=== PATIENT | female | born 1945 | race Caucasian/White ===

== ENCOUNTER 2020-03-23 10:20 | Outpatient (CLI) | payer MEDICARE, BC, SELFPAY ==
--- NOTE | 2020-03-23 10:31 | XRR_ITS ---
PROCEDURE INFORMATION: Exam: XR Right Knee Exam date and time: 03/23/2020 10:56 AM Age: 74 years old Clinical indication: Right; Patient HX: C/O RT medial knee pain. Stepped in a hole and twisted knee x 3 weeks; Additional info: R knee pain TECHNIQUE: Imaging protocol: XR Right knee. Views: 3 views. COMPARISON: No relevant prior studies available. FINDINGS: Bones/joints: There is mild medial and moderate patellofemoral compartment degeneration. There is a small knee joint effusion. Soft tissues: Normal. XR/XR knee RT 3V* [id number] IMPRESSION: Small knee joint effusion. No acute abnormality.
== END 2020-03-23 10:21 | disposition home or self-care (01) ==
PROVIDERS: Visit Provider Family Medicine
DX: M25.561 Pain in right knee (principal); M25.461 Effusion, right knee
CPT/HCPCS: 73562

== ENCOUNTER 2020-04-04 06:51 | Outpatient (CLI) | payer MEDICARE, BC, SELFPAY ==
--- NOTE | 2020-04-04 07:11 | MR_ITS ---
WS: [id number] MRI RIGHT KNEE HISTORY: RIGHT KNEE PAIN COMPARISON: 03/23/2020 Anterior cruciate ligament: Increased edema within the ACL but no full-thickness tear. Linear signal in the distal ligament, partial tear suspected. Posterior cruciate ligament: Intact. Medial collateral ligament: Edema surrounding the MCL. No full-thickness tear. Posterior lateral corner structures: Intact. Medial menisci: Increased signal in the posterior horn. No full-thickness tear is identified. The men iscus is extruded from the joint space. In the extruded portion there is increased signal at the leve l of the body. Increased signal is best seen on the coronal T2 with fat sat images and extends obliqu cielo through the meniscus. Lateral meniscus: Increased signal in the posterior horn. No full-thickness tear is identified. Incre ased signal does not extend definitely to the articular surfaces. Extensor mechanism: Distal quadriceps tendon and patellar tendons are intact. Fluid and soft tissue: Small suprapatellar joint effusion. There is a small amount of fluid surroundi ng the femoral condyles. No Rodrigues's cyst. Osseous and articular structures: Patellofemoral compartment: Loss of cartilage over the medial and lateral facets and patellar eminenc e. Small amount subchondral edema at the patellar eminence. Medial compartment: Thinning and fissuring of the cartilage. Mild narrowing of the joint space. There is partial extrusion of the meniscus Lateral compartment: Narrowing of the joint space with thinning and fissuring of the cartilage. There is additional marrow edema along the femoral condyle weightbearing surface. MR/MR knee RT wo con* [id number] IMPRESSION: 1. Moderate internal derangement medial compartment. Partially extruded menisc us with a complex tear in the mid body which is extruded from the joint line. 2. Mild MCL sprain. 3. Small joint effusion and soft tissue edema. 4. Marked chondromalacia patella. 5. Mild degenerative changes and loss of cartilage lateral compartment. 6. Linear increased signal in the ACL. Minimal tear suspected.
== END 2020-04-04 06:52 | disposition home or self-care (01) ==
LOC: RADSHAW 06:51
PROVIDERS: PCP Family Medicine; Visit Provider Family Medicine
DX: S83.411A Sprain of medial collateral ligament of right knee, initial encounter (principal); X58.XXXA Exposure to other specified factors, initial encounter; M25.461 Effusion, right knee; R60.9 Edema, unspecified; M22.41 Chondromalacia patellae, right knee
CPT/HCPCS: 73721

== ENCOUNTER 2020-04-11 10:11 | Outpatient (CLI) | payer MEDICARE, BC, SELFPAY ==
--- NOTE | 2020-04-11 10:20 | MM_ITS ---
WS: [id number] BILATERAL DIGITAL SCREENING MAMMOGRAPHY WITH CAD CLINICAL INFORMATION: SCREENING HISTORY: Screening mammogram. No current complaints. COMPARISON: March 28, 2019 TECHNIQUE: Bilateral CC and MLO views. FINDINGS: The breasts are composed of heterogeneous fibroglandular density tissue, which can limit the detectio n of small underlying mass lesions. Dystrophic calcifications posterior depth right breast Slightly spiculated 5 mm lesion upper outer right breast. Recommend spot compression views and ultras ound for further evaluation. MM/[place] [id number] IMPRESSION: BI-RADS: 0-Incomplete: Need additional imaging evaluation FOLLOW UP: Need Additional Imaging
== END 2020-04-11 10:12 | disposition home or self-care (01) ==
LOC: RADSHAW 10:17
PROVIDERS: PCP Family Medicine; Visit Provider Family Medicine
DX: Z12.31 Encounter for screening mammogram for malignant neoplasm of breast (principal); N64.89 Other specified disorders of breast
CPT/HCPCS: 77067

== ENCOUNTER → 2020-04-23 13:51 | Outpatient (BNVA) | payer MEDICARE, BC, SELFPAY | PROVIDERS: PCP Family Medicine; Referring Provider Family Medicine; Visit Provider Specialist | DX: M25.569 Pain in unspecified knee (principal); M17.11 Unilateral primary osteoarthritis, right knee; M25.461 Effusion, right knee | CPT/HCPCS: 73560; 73565; 80500; 89051 ==

== ENCOUNTER 2020-05-11 12:42 | Outpatient (CLI) | payer MEDICARE, BC, SELFPAY ==
--- NOTE | 2020-05-11 12:58 | MM_ITS ---
WS: [id number] RIGHT DIGITAL MAMMOGRAPHY WITH CAD CLINICAL INFORMATION: ABNORMAL MAMMO COMPARISON: 04/11/2020 and 03/28/2019 TECHNIQUE: 3 views of the right breast were obtained. FINDINGS: The right breast is composed of heterogeneous fibroglandular density tissue, which can limit the dete ction of small underlying mass lesions. Persistent slightly spiculated 5 mm lesion upper outer right breast. This persists on spot compression views. Ultrasound is pending. ULTRASOUND BREAST RIGHT TECHNIQUE: Ultrasound right breast focused area of concern. CLINICAL INFORMATION: ABNORMAL MAMMO COMPARISON: None. FINDINGS: Ultrasound right breast at the 9 to 12:00 position. Dense underlying breast tissue. At the 10:00 posi tion is a ill-defined hypoechoic lesion is taller than wide with a traversing vessel. This measures a pproximately 4.3 x 4.1 x 4.3 mm. Recommend further evaluation with ultrasound-guided biopsy. MM/[place] [id number] IMPRESSION: BI-RADS: 4-Suspicious Finding-Biopsy Should Be Considered FOLLOW UP: US Guided Biopsy Recommended
== END 2020-05-11 12:43 | disposition home or self-care (01) ==
LOC: RADSHAW 12:45
PROVIDERS: PCP Family Medicine; Visit Provider Family Medicine
DX: R92.8 Other abnormal and inconclusive findings on diagnostic imaging of breast (principal); N64.89 Other specified disorders of breast
CPT/HCPCS: 76642; 77065

== ENCOUNTER → 2020-05-16 10:24 | Outpatient (BNVA) | payer MEDICARE, BC, SELFPAY | PROVIDERS: PCP Family Medicine; Visit Provider Specialist | DX: M25.561 Pain in right knee (principal); M17.11 Unilateral primary osteoarthritis, right knee | CPT/HCPCS: 73560; 73565 ==

== ENCOUNTER 2020-05-18 12:12 | Outpatient (CLI) | payer MEDICARE, BC, SELFPAY ==
--- NOTE | 2020-05-18 12:24 | US_ITS ---
WS: [id number] ULTRASOUND-GUIDED RIGHT BREAST BIOPSY HISTORY: RIGHT breast lesion 10:00. COMPARISON: 05/11/2020 Procedure, risks and complications are explained to the patient. Medications are reviewed. Consent is obtained. The mass in the RIGHT breast is localized with ultrasound. Skin is cleansed with ChloraPrep and anest hetized with 1% buffered lidocaine. Small dermatome is made. Under sterile conditions mass is biopsie d with a 14-gauge Achieve needle. Multiple core biopsies are performed. Material placed in formalin a nd sent to pathology for review. No complications encountered. Breast tissue marker ([facility] ultrasound enhanced ribbon): Single. Patient left the radiology suite with no complications. Patient is instructed to return to [facility] or [facility] with any concerns. US/[place] [id number] IMPRESSION: 1. Uncomplicated core needle biopsy RIGHT breast mass at 10:00. PATHOLOGY: Invasive ductal carcinoma, well differentiated. Ancillary studies an d additional pathology evaluation is pending. RECOMMENDATION: Surgical and oncologic follow-up.
== END 2020-05-18 12:13 | disposition home or self-care (01) ==
LOC: RAD 12:18
PROVIDERS: PCP Family Medicine; Visit Provider Family Medicine
DX: N64.89 Other specified disorders of breast (principal); C50.411 Malignant neoplasm of upper-outer quadrant of right female breast
CPT/HCPCS: 19083; 88305

== ENCOUNTER 2020-06-06 10:19 | Outpatient (CLI) | payer MEDICARE, BC, SELFPAY ==
--- NOTE | 2020-06-07 18:42 | ONC CON_ITS ---
Dr. Arshad New Patient Note Patient: Bree Mendez Unit #: [id number]: [id number] Dicatated By: Mateus Arshad M.D.Date of Visit: Jun 06, 2020 Onc MED New Patient/Consult Referring Physician: Dr. MADISYN FUNES M.D. Chief Complaint: Breast cancer. 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 She has been in good general health. Her yearly screening mammogram on 04/11/2020 was BI-RADS 0. Findings included a slightly spiculated 5 mm lesion in the upper outer right breast. Her diagnostic mammogram on 05/11/2020 showed persistent slightly spiculated 5 mm upper outer quadrant breast lesion. Further evaluation with ultrasound showed an ill-defined hypoechoic lesion at the 10 o'clock position measuring approximately 4.3 x 4.1 x 4.3 mm. The findings were BI-RADS 4, suspicious, and further evaluation with biopsy was recommended. She then underwent ultrasound-guided core needle biopsy of the right breast on 05/22/2020. Pathology showed grade 1 invasive ductal carcinoma. The breast prognostic profile showed ER positive at 80% and AL positive at 70%. It was negative for overexpression of HER-2/cece, 1+ by IHC and amplification ratio by FISH of 1.0 with 2.2 HER-2 copies/cell. The Ki-67 was intermediate at 10%. She is seen now in regard to further management of the breast cancer. She has been feeling pretty good generally, though she does complain that she tires easily. Her ECOG score is 1. Her appetite is not that good, but she does eat. She says her weight is down a little. She does not have fever, night sweats, or hot flashes. She complains that her nose runs a lot and she sometimes has sore throat. She has had cough and she also complains that her breathing has not been as good. She used to be on an inhaler for asthma. She has a little bit of nausea. Her bowels vary between diarrhea and constipation. Her last colonoscopy was in 2007. She has no complaints. She has joint pain, mainly in the shoulders and in the right knee. She is seeing Dr. Francisco. She does not complain of headache. She has just occasional dizziness. She has a little bit of numbness in the right foot. She has no other focal neurologic symptoms. Past Medical History: Her medical history includes asthma, degenerative arthritis, glaucoma, hyperlipidemia, and osteoporosis. Past Surgical History: She underwent ultrasound directed core needle biopsy of the right breast on 05/22/2020. Her other surgical/procedural history includes glaucoma surgery and cataract excisions bilaterally, removal of lump on head, and colonoscopy in 2007. Medications: Cetirizine HCl 1 Tablet (of 10 mg) Oral PRN, Citracal +D3 1 Tablet (of 500-630 Units/mg) Tablet, chewable Oral at bedtime, Curcumin 95 1 Capsule (of 500 mg) Oral daily, Tawana 1 Capsule (of 500 mg) Oral daily, itch relief cream 1 Cream Topical PRN, Lutein 1 Capsule (of 20 mg) Oral daily, Magnesium 1 Tablet (of 500 mg) Oral daily, Union 3 1 Capsule (of 500 mg) Oral daily, Systane 1 Drop(s) (of 0.4-0.3 %) Solution Ophthalmic daily, Vitamin C 1 Tablet (of 1000 mg) Oral daily, Vitamin D3 1 Capsule (of 2000 Units) Oral daily Allergies: Actonel Social History: Ms. Mendez is . 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 She is a non-smoker. She has had only rare alcohol use. Family History: Her father of liver cancer at age 38. Mother had breast cancer and dementia. She at age 86. She had no siblings. Review Of Symptoms: Constitutional - She indicates that she tires easily, but she is still pretty active. She says she is not that hungry, but she does eat. Her weight is down a little. She has not had fever, night sweats, or hot flashes. ECOG score is 1, Eyes - She has glaucoma, but no recent change in vision, ENMT - She has had some hearing loss. No tinnitus. She says her nose runs a lot. She has had no mouth sores. She sometimes has sore throat. No difficulty swallowing, Hematologic/Lymphatic - No abnormal bruising or bleeding, Respiratory - Her breathing is not as good and she does have some cough. No pleuritic pain or hemoptysis, Cardiovascular - No angina pain. No palpitations, Gastrointestinal - She has a little bit of nausea. No heartburn or acid reflux. Her bowels fluctuate between diarrhea and constipation. No blood in the stool or black stools, Genitourinary (F) - No dysuria or hematuria. No urinary frequency. No urgency or incontinence, Musculoskeletal - She has joint pain in her shoulders and in her right knee. She is seeing Dr. Francisco, Integumentary - No skin rash or other skin changes, Neurologic - No headache. She occasionally has dizziness. She has a little bit of numbness in her right foot. No other focal neurologic symptoms, Psychiatric - No anxiety or depression. She has difficulty sleeping. Vital Signs: Performed on Jun 06, 2020 11:46: 0, 23.86, 1.76 sq.m, 66.00 in, 99 %, 73 /min, 20 /min, 147/64 mm(hg) (HIGH), 98.3 F (LOW), and 147.8 lbs (HIGH). Physical Examination: Constitutional - She appears to be in good general health, Eyes - Sclerae nonicteric. Conjunctivae clear, ENMT - No lesions noted in the oral cavity, Neck - No mass or thyromegaly, Hematologic/Lymphatic - No cervical or clavicular adenopathy, Respiratory - Lungs are clear with good air movement bilaterally, Cardiovascular - Heart rhythm is regular. There is no murmur, gallop, or rub noted, Breasts - There are no breast masses noted. There is no axillary adenopathy, Abdomen - Soft and non-tender. Liver and spleen are not enlarged. There is no abdominal mass or ascites noted and there is no inguinal adenopathy, Back/Spine - No spine or CVA tenderness noted, Extremities - No edema. Dorsalis pedis pulses are palpable bilaterally, Integumentary - No rashes. No suspicious skin lesions noted, Neurologic - No focal neurologic deficits noted. Impression: 1. 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 Staging is incomplete, but it does appear to be a very small primary lesion by imaging. 2. She underwent ultrasound directed core needle biopsy of the right breast on 05/22/2020. Her other medical illnesses include: 3. Glaucoma. 4. Hyperlipidemia. 5. Asthma. 6. Degenerative arthritis. 7. She previously was treated for osteoporosis. Plan: The mammogram/ultrasound findings and pathology results were reviewed with the patient, discussed the clinical implications. She has invasive ductal carcinoma of the right breast which is ER/AL positive and HER-2/cece negative. She almost certainly has early stage disease, as this appears to be a very small tumor by ultrasound. We discussed options for her local regional treatment, which may include lumpectomy/radiation or mastectomy. With either procedure she would also have axillary lymph node sampling to complete her staging. She appears to be a very good candidate for breast conservation, and she does want to proceed along that route. We also discussed the fact that with invasive breast cancer she also will need systemic adjuvant therapy. With early stage, ER/AL positive disease, this will very likely be limited to adjuvant hormonal therapy. This will be determined based on the pathologic staging and on results of Oncotype DX, as indicated. At this point I will arrange for her to see Dr. Hills for lumpectomy and axillary sentinel lymph node sampling, and I will plan to see her again when the pathology results are available. Signed By: Mateus Arshad M.D. <<Signature on File>>
== END 2020-06-06 10:20 | disposition home or self-care (01) ==
LOC: ONCMED 10:25
PROVIDERS: PCP Family Medicine; Referring Provider Family Medicine; Visit Provider Internal Medicine Medical Oncology
DX: C50.411 Malignant neoplasm of upper-outer quadrant of right female breast (principal); Z17.0 Estrogen receptor positive status [ER+]; E78.5 Hyperlipidemia, unspecified; J45.909 Unspecified asthma, uncomplicated; M19.90 Unspecified osteoarthritis, unspecified site; M81.0 Age-related osteoporosis without current pathological fracture; H40.9 Unspecified glaucoma
CPT/HCPCS: 99205

== ENCOUNTER → 2020-06-24 08:35 | Outpatient (BNVA) | payer MEDICARE, BC, SELFPAY | PROVIDERS: PCP Family Medicine; Visit Provider Surgery | DX: Z20.828 Contact with and (suspected) exposure to other viral communicable diseases (principal) | CPT/HCPCS: 87635 ==

== ENCOUNTER 2020-06-27 07:26 | Day surgery (SDC) | payer MEDICARE, BC, SELFPAY ==
[2020-06-26 14:11] VITALS: BMI 23.8
[2020-06-27] VITALS (12 sets, daily range): BP systolic 131–148; BP diastolic 73–85; PULSE 73–86; RESP 11–18; TEMP 36.1–36.5; O2SAT 94–98
--- NOTE | 2020-06-27 | US_ITS ---
WS: [id number] ULTRASOUND-GUIDED RIGHT BREAST NEEDLE LOCALIZATION HISTORY: RIGHT breast mass localized at 10:00. Procedure, risks and complications were explained to the patient. Consent is obtained. Skin is cleansed with ChloraPrep and anesthetized with 1% buffered lidocaine. Needle and guidewire pl aced to the area of concern with no complications. Ultrasound guidance performed during the needle lo calization. Guidewire is left within the lesion. Guidewire secured and no complications encountered. Patient is being transported to the OR suite. Specimen radiograph is also reviewed. Lesion is within the specimen. RECOMMENDATIONS: Follow-up with Dr. Hills. US/US breast surgical specimen IMPRESSION: Uncomplicated wire localization RIGHT breast mass at 10:00. PATHOLOGY RESULTS: Invasive ductal carcinoma.
--- NOTE | 2020-06-27 07:47 | NM_ITS ---
WS: [id number] NUCLEAR MEDICINE SENTINEL LYMPH NODE IMAGING HISTORY: RIGHT breast cancer. COMPARISON: None available. TECHNIQUE: The patient was injected with 1.08 mCi of Technetium 99 ultra filtered sulfur colloid. Inj ection is intradermal in a periareolar location. Four aliquots are used. Uncomplicated injection RIGHT periareolar region. NM/NM sentinel node inject [id number] IMPRESSION: RIGHT breast sentinel node injection.
--- NOTE | 2020-06-27 08:23 | W.PM.OPSUD ---
Surgery/Procedure H&P Update DATE OF PROCEDURE: June 27, 2020 DATE H&P PERFORMED: 06/12/20 H&P UPDATE INFORMATION: I have reviewed H&P completed within last 30 days, I have examined patient prior to procedure and No changes to prior documentation PREOP DIAGNOSIS: Right breast cancer PLANNED PROCEDURE: Operation Date: 06/27/20 09:50 Proposed Procedures p Breast Biopsy Needle Localization right [id number] C50.911(Right) - Marbin Hills MD s Sentinal Lymph Node Biopsy(Right) - Marbin Hills MD s Right Breast Lumpectomy(Right) - Marbin Hills MD
--- NOTE | 2020-06-27 08:40 | US_ITS ---
WS: [id number] ULTRASOUND-GUIDED RIGHT BREAST NEEDLE LOCALIZATION HISTORY: RIGHT breast mass localized at 10:00. Procedure, risks and complications were explained to the patient. Consent is obtained. Skin is cleansed with ChloraPrep and anesthetized with 1% buffered lidocaine. Needle and guidewire pl aced to the area of concern with no complications. Ultrasound guidance performed during the needle lo calization. Guidewire is left within the lesion. Guidewire secured and no complications encountered. Patient is being transported to the OR suite. Specimen radiograph is also reviewed. Lesion is within the specimen. RECOMMENDATIONS: Follow-up with Dr. Hills. US/[place] [id number] IMPRESSION: Uncomplicated wire localization RIGHT breast mass at 10:00. PATHOLOGY RESULTS: Invasive ductal carcinoma.
--- NOTE | 2020-06-27 09:32 | ANES.PREANE2 ---
Pre-Anesthetic Assessment Pre-Anesthetic Assessment: Height/Weight: Height 1.68 m Weight 67.132 kg Temp Pulse Resp BP Pulse Ox 97.6 F 75 18 141/85 98 06/27/20 07:40 06/27/20 07:40 06/27/20 07:40 06/27/20 07:40 06/27/20 07:40 Preop Diagnosis: Right breast cancer Proposed Procedure: Operation Date: 06/27/20 09:50 Proposed Procedures p Breast Biopsy Needle Localization right [id number] C50.911(Right) - Marbin Hills MD s Sentinal Lymph Node Biopsy(Right) - Marbin Hills MD s Right Breast Lumpectomy(Right) - Marbin Hills MD Familial anesthetic complications: none Was Beta Demetra taken within 24 hours: N/A Last Intake: 22:30 Social: Social History: No alcohol and No tobacco Exam: Pre-Anes Outpt Exam: alert, oriented x 3, clear to auscultation bilaterally and regular rate & rhythm Airway: Submandibular: WNL Cervical ROM: WNL MP: 1 Dentition: Full Pulmonary: Pulmonary: Asthma (possible allergy induced) and Cough (non productive) CV/HEM: CV/HEM: None reported : : None reported Hepatic: Hepatic: None reported GI: GI: None reported Metabolic: Metabolic: None reported Musc/skel: Musc/skel: OA/DJD Neuropsych: Neuropsych: None reported Anesthetic Plan: ASA status: 2 Anesthesia: Anesthesia Evaluation and General PFSH Anesthesia PFSH: Medical History (Updated 06/26/20 @ 14:00 by Julia Freedman RN) Breast cancer, right Primary osteoarthritis of right knee Surgical History H/O colonoscopy 2007 H/O eye surgery cataract and glaucoma H/O removal of cyst Hx of breast biopsy Family History Mother Cancer Father Cancer Other Stroke Denies family history of Diabetes Anesthesia complication Bleeding disorder Social History Smoking and tobacco status: never smoked Alcohol intake: current Alcohol intake frequency: holidays/special occasions only Household members: spouse Marital status: Current occupational status: retired History of recent travel: No Data Anesthesia Cardiac Studies: No Data to Display
[2020-06-27] MEDS: isosulfan blue 10 mg/mL SDV 5mL SUBCUT (12:19)
[2020-06-27] MEDS: lidocaine 1% INJ 20 mL IM (12:22)
--- NOTE | 2020-06-27 13:40 | SUR.PHASEI ---
1330 patient to pacu from or. rr even and unlabored. dressing to left breast, cdi with surgical bra in place.
[2020-06-27] MEDS: morphine 4 mg/mL SDV 1 mL IVP (14:25)
--- NOTE | 2020-06-27 15:55 | ANE.PACU2 ---
Inpatient post-anesthesia follow up: Airway intact: Yes Vital signs: Temperature 97 F Pulse Rate 76 Respiratory Rate 18 Blood Pressure 148/76 Pulse Oximetry 95 Oxygen Delivery Me thod Room Air Oxygen Flow Rate Fraction of Inspir ed Oxygen Hydration adequate: Yes Nausea and vomiting: No Pain level: 1 Mental status: Baseline
[2020-06-27] MEDS: sodium chloride 0.9% 1,000 ML 30 ML IV (16:01)
--- NOTE | 2020-07-02 17:02 | PM.OP ---
Operative Report Date of procedure: 06/27/2020 Pre-op Diagnosis: Right breast cancer Post-op Findings: Right breast cancer 10 o'clock position Procedure Done: Wire localization partial mastectomy right breast Right axillary sentinel lymph node biopsy Injection of 1% Lymphazurin for sentinel lymph node biopsy Pathology: Right breast mass 10 o'clock position, short stitch superior, long stitch lateral Right axilla sentinel lymph node biopsy Surgeon: Marbin Hills Anesthesia: General Condition: stable Disposition: PACU Procedure: The wire localization of the mammographic abnormality was performed by the radiologist under ultrasound guidance and the patient was transferred to operating room and placed under general anesthesia after IV antibiotic had been administered. The right breast was prepped and draped in a manner . A curvilinear incision was made over the areolar margin at 9'o clock medial to the marking over the mammographic abnormality, subcutaneous tissue was divided and skin flaps were raised medially and laterally. The localization wire was grasped through the incision and using electrocautery the wire along with the breast tissue containing mammographic abnormality was dissected free from the surrounding tissue. Using 2-0 silk suture, short stitch was placed superiorly and a long stitch was placed laterally.The wound was irrigated with saline, hemostasis ensured with electrocautery and subcutaneous tissues approximated using 3-0 running Vicryl suture and skin was closed using running subcuticular 4-0 Monocryl sutures and Dermabond. A technetium sulfur colloid had been injected previously by the radiologist in the periareolar area. 3 mL of 1% Lymphazurin was injected in the subareolar location. The breast was massaged for 5 minutes and a 2 cm incision was made in the left axilla at the edge of the hairline. The subcutaneous tissue and clavipectoral fascia was divided with electrocautery and gentle dissection revealed lymphatics with stained lymph nodes. Using electrocautery the lymph nodes were dissected free and sent to pathology in formalin. There was no other significant radioactivity noted in the right axilla. Examination of the axilla did not reveal any other lymph nodes. The clavipectoral and subcutaneous tissue was approximated using running 3-0 Vicryl suture and skin was closed using running subcuticular 4-0 Monocryl suture and Dermabond.
== END 2020-06-27 15:59 | disposition home or self-care (01) ==
PROVIDERS: PCP Family Medicine; Visit Provider Surgery
PROC: (CPT 19301; principal; 2020-06-27 09:50)
PROC: (CPT 19301; 2020-06-27 09:50)
PROC: (CPT 19301; 2020-06-27 09:50)
DX: C50.411 Malignant neoplasm of upper-outer quadrant of right female breast (principal); J45.909 Unspecified asthma, uncomplicated; M19.90 Unspecified osteoarthritis, unspecified site
CPT/HCPCS: 19301; 38525; 12345; 19285; 38792; 88305; A9541; J0690; J1100; J2270; J2405; J2704; J3010; J3490; J7030; Q9968

== ENCOUNTER 2020-07-20 09:10 | Outpatient (CLI) | payer MEDICARE, BC, SELFPAY ==
--- NOTE | 2020-07-24 07:38 | ONC FU_ITS ---
Dr. Arshad Patient Follow-Up Note Patient: Bree Mendez Unit #: [id number]: 1945 Dicatated By: Mateus Arshad M.D.Date of Visit:Jul 20, 2020 Onc Med Follow-up/Prog Note Chief Complaint: Breast cancer. 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 Her yearly screening mammogram on 04/11/2020 was BI-RADS 0. Findings included a slightly spiculated 5 mm lesion in the upper outer right breast. Her diagnostic mammogram on 05/11/2020 showed persistent slightly spiculated 5 mm upper outer quadrant breast lesion. Further evaluation with ultrasound showed an ill-defined hypoechoic lesion at the 10 o'clock position measuring approximately 4.3 x 4.1 x 4.3 mm. The findings were BI-RADS 4, suspicious, and an ultrasound-guided core needle biopsy of the right breast on 05/22/2020 showed grade 1 invasive ductal carcinoma. The breast prognostic profile showed ER positive at 80% and NE positive at 70%. It was negative for overexpression of HER-2/cece, 1+ by IHC and amplification ratio by FISH of 1.0 with 2.2 HER-2 copies/cell. The Ki-67 was intermediate at 10%. On 07/02/2020 she underwent right breast lumpectomy and right axillary sentinel lymph node biopsy. Pathology showed just a small residual focus of grade 1 invasive ductal carcinoma measuring 2.7 mm. The margins were negative. There was no involvement in 3 axillary sentinel lymph nodes. Pathologic staging was IA (T1b, pN0, M0). She has seen now to discuss further management of the breast cancer. She has soreness at the lumpectomy site in the right breast. She is otherwise feeling okay. Medications: Cetirizine HCl 1 Tablet (of 10 mg) Oral PRN, Citracal +D3 1 Tablet (of 500-630 Units/mg) Tablet, chewable Oral at bedtime, Curcumin 95 1 Capsule (of 500 mg) Oral daily, Tawana 1 Capsule (of 500 mg) Oral daily, itch relief cream 1 Cream Topical PRN, Lutein 1 Capsule (of 20 mg) Oral daily, Magnesium 1 Tablet (of 500 mg) Oral daily, Baldwin 3 1 Capsule (of 500 mg) Oral daily, Systane 1 Drop(s) (of 0.4-0.3 %) Solution Ophthalmic daily, Vitamin C 1 Tablet (of 1000 mg) Oral daily, Vitamin D3 1 Capsule (of 2000 Units) Oral daily Allergies: Actonel Vital Signs: Performed on Jul 20, 2020 09:18 Height - 66.00 in Weight - 150.8 lbs (HIGH) BSA - 1.77 sq.m BMI - 24.34 Temperature - 98.2 F (LOW) Pulse - 83 /min Respiration - 18 /min BP - 124/59 mm(hg) O2 Sat - 97 % Pain - 3 Physical Examination: Constitutional - She looks good generally, Breasts - There is a firm nodule at the lumpectomy site in the right breast, measuring the range of 2 to 3 cm. It feels more like organizing hematoma as opposed to seroma. There is no associated erythema. There is no axillary adenopathy. Impression: 1. 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 2. She underwent ultrasound directed core needle biopsy of the right breast on 05/22/2020. Her other medical illnesses include: 3. Glaucoma. 4. Hyperlipidemia. 5. Asthma. 6. Degenerative arthritis. 7. She previously was treated for osteoporosis. Her pathologic indicators are favorable, as it is a very small, grade 1 lesion, which is hormone receptor positive and which is not showing overexpression of HER-2/cece. She has a tender nodule at the lumpectomy site, which I suspect is organizing hematoma, though seroma was not entirely excluded. Plan: There appears to be no indication for adjuvant chemotherapy, I will not be requesting Oncotype DX in this situation. She does need to see the radiation oncologist for radiation, following which I will plan to initiate adjuvant hormonal therapy. I reviewed options for hormonal therapy, which will most likely be an aromatase inhibitor, and I did review the potential side effects which may include osteoporosis and/or musculoskeletal pain, among others. I did recommend that she follow-up with Dr. Hills regarding the nodule at the lumpectomy site. Ftzz-eo-aayr time with patient was approximately 30 minutes, greater than 50% spent in counseling/discussion. Signed By: Mateus Arshad M.D. <<Signature on File>>
== END 2020-07-20 09:11 | disposition home or self-care (01) ==
PROVIDERS: PCP Family Medicine; Visit Provider Internal Medicine Medical Oncology
DX: C50.411 Malignant neoplasm of upper-outer quadrant of right female breast (principal); Z17.0 Estrogen receptor positive status [ER+]; G89.18 Other acute postprocedural pain; E78.5 Hyperlipidemia, unspecified; M19.90 Unspecified osteoarthritis, unspecified site; M81.0 Age-related osteoporosis without current pathological fracture; J45.909 Unspecified asthma, uncomplicated
CPT/HCPCS: 99214

== ENCOUNTER 2020-07-26 06:12 | Outpatient (CLI) | payer MEDICARE, BC, SELFPAY ==
--- NOTE | 2020-07-26 10:44 | N.ONRAD NP_ITS ---
Radiation Oncology New Patient Visit Patient: Bree Mendez MR#: [id number] : 1945 Age: 75 Sex: Female Dictated by: Dr. Kar Roberts Date of Service: 07/26/2020 Referring Physician(s) : Dr Arshad Primary Site: Right breast Diagnosis: pT1b pN0 (0/3sln) Mx grade 1 invasive ductal carcinoma originating in the right breast at the 10 o'clock position, ER/VA strongly positive, HER-2 negative, Ki-67 10%, status post lumpectomy and sentinel lymph node biopsy (06/28/2020) with pathology revealing lateral margins negative by 2 mm, 5.8 mm aggregate size of tumor, no DCIS, no LVI/PNI, and 0/3 involved sentinel lymph nodes. Purpose of Visit: Discuss the role of adjuvant radiotherapy with curative intent. Radiotherapy to date: No prior radiation therapy. History of Present Illness: The patient is a 75-year-old female who underwent an annual screening mammogram (04/11/2020) which revealed a slightly spiculated 5 mm lesion in the upper outer quadrant of the right breast. A subsequent diagnostic mammogram and right breast ultrasound (05/11/2020) revealed a 4.3 x 4.1 x 4.3 mm hypoechoic lesion at the 10 o'clock position of the right breast. A subsequent ultrasound-guided core needle biopsy (05/18/2020) of the right breast at the 10 o'clock position revealed grade 1 invasive ductal carcinoma, ER +80%, VA +70%, HER-2/cece negative, Ki-67 10%, The patient subsequently underwent a wire localized right breast lumpectomy at the 10 o'clock position along with sentinel lymph node biopsy (Dr. Hills 06/28/2020). Pathology revealed a 2.7 mm residual focus of grade 1 invasive ductal carcinoma, no lymphovascular or perineural invasion was identified, margins were negative by 2 mm with respect to the lateral margin, ductal carcinoma in situ was not identified, and there was 0/3 involved sentinel lymph nodes. The pathologist characterized the maximum size of the tumor as 5.8 mm (i.e., 5.8 = 2.7 mm + 3.1 mm previous biopsy site). Current Medications: Cetirizine HCl, citracal +D3, curcumin 95, mayo, itch relief cream, lutein, magnesium, omega 3, systane, vitamin C, vitamin D3. Allergies: Actonel. Medical History: - Asthma, - degenerative arthritis, - glaucoma, - hyperlipidemia, - osteoporosis. No history of collagen vascular disease. No previous radiation therapy. Surgical History: Colonoscopy in 2007, glaucoma surgery and cataract excisions bilaterally, removal of lump on head and ultrasound directed core needle biopsy of the right breast on 05/22/2020. Family History: Father is having experienced liver cancer. Mother is at age 86 having experienced breast cancer, and dementia, and BONE CANCER. Maternal Grandmother is at age 80 having experienced BONE CANCER. Her father of liver cancer at age 38. Mother had breast cancer and dementia. She at age 86. She had no siblings. pt states her mother's sister had lymphoma, another sister had breast cancer but from a heart attack. Social History: Last screened on 07/26/2020 - Never smoked. Last screened on 07/26/2020 - Drinks occasionally. Current Complaints / Review of Systems: Constitutional - Complains of mild fatigue. Denies lack of appetite, fever, night sweats and change in weight. Eyes - Denies blurred vision and double vision. ENMT - Denies dysphagia, ear pain, mouth dryness, stomatitis and altered taste. Neck - Complains of neck pain which is chronic. Integumentary - Denies rash. Breasts - Complains of pain in the right breast occasionally. Cardiovascular - Denies arrhythmias, chest pain and edema. Respiratory - Complains of mild dyspnea associated with normal activity. Denies cough and wheezing. Gastrointestinal - Complains of intermittent constipation. Denies abdominal pain, diarrhea, heartburn / dyspepsia, nausea and vomiting. Genitourinary (F) - Complains of nocturia gets up about 1 time per night. Denies dysuria, frequency, hematuria, urgency, vaginal discharge / bleeding and vaginal spotting. Musculoskeletal - Complains of joint pain in both shoulders and right knee. Denies bone pain. Neurologic - Denies dizziness, abnormal gait and headaches. Endocrine - Denies diabetes and thyroid disease. Hematologic/Lymphatic - Denies tender or enlarged lymph nodes.. Vital Signs: Performed on 07/26/2020 9:30 AM BMI - 24.308 kg/m2 (high), Height - 66.00 in, Weight - 150.6 lbs, Temperature - 98.6 f, Pulse - 80, Respiration - 18, O2 Sat - 98 %, Pain - 2 and BP - 129/ 75 mm(hg). Physical Exam: GENERAL:??? The patient is alert, and in no acute distress. HEENT:??? Head is normocephalic. Face is symmetric. External ocular movements are intact. Sclera and conjunctivae are non erythematous. NECK:??? Trachea is midline.??? Thyroid is not enlarged by palpation.??? LYMPH NODES:??? There is no cervical, supraclavicular, or axillary adenopathy bilaterally. Breast: A well-healed post lumpectomy periareolar surgical scar is appreciated in the right breast. In addition, there is a well-healed surgical scar in the right axilla. The right breast has a small amount of seroma developing within the upper outer quadrant of the right breast. Mild scar retraction is appreciated in the right breast. There is no palpable abnormality in the contralateral left breast. LUNGS:??? Clear to auscultation bilaterally. Respiratory movement is unlabored. HEART:??? Regular rate and rhythm. EXTREMITIES:??? No deformities. NEUROLOGIC:??? Gait and station are normal.??? The patient is well coordinated and strength is equal bilaterally. 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 Cranial nerves II-XII are intact and without focal deficits.??? Psych: Affect is normal. Skin: Cursory review of the skin reveals no obvious lesions concerning for malignancy. Performance Status: 1 - No physically strenuous activity, but ambulatory and able to carry out light or sedentary work (e.g. office work, light house work). (ECOG) Impression: The patient is a 75-year-old female with pT1b pN0 (0/3sln) Mx grade 1 invasive ductal carcinoma originating in the right breast at the 10 o'clock position, ER/VA strongly positive, HER-2 negative, Ki-67 10%, status post lumpectomy and sentinel lymph node biopsy (06/28/2020) with pathology revealing lateral margins negative by 2 mm, 5.8 mm aggregate size of tumor, no DCIS, no LVI/PNI, and 0/3 involved sentinel lymph nodes. It was explained to the patient that providing adjuvant radiation therapy plus endocrine therapy would provide an 8% local control benefit over 10 years, and an approximate 18% local control benefit over 15 years (see figure 2- [facility] 2013 - PMID [id number]). This translates into an approximate 98% chance that cancer will not return within the treated right breast over a 10 to 15-year period. This recommendation is supported by termite inspector randomized data obtained by the [facility] as summarized below. Lumpectomy Plus Tamoxifen With or Without Irradiation in Women Age 70 Years or Older With Early Breast Cancer: Long-Term Follow-Up of CALGB 9343. (Cat [facility] [place] 2013 - PMID [id number]) CALGB 9343, 636 women with [id number] ER+ tumors, treated with Lumpectomy and Tamoxifen, randomized with and without XRT, Median F/U 12.6 years -) 10-yr freedom from locoregional recurrence: 90% (Tamoxifen alone) vs 98% (Tamoxifen + XRT). No significant differences in time to mastectomy, time to DM, BCSS, or OS. 10-yr OS was 66% and 67%, respectively. -) Conclusion: With long-term follow-up, the previously observed small improvement in locoregional recurrence with the addition of radiation therapy remains. However, this does not translate into an advantage in OS, distant disease-free survival, or breast preservation. Depending on the value placed on local recurrence, Tamoxifen [alone] remains a reasonable option for women age = 70 years with ER-positive early-stage breast cancer. Plan: The patient shared that Dr. Arshad may or may not recommend adjuvant endocrine therapy secondary to osteoporosis. In that instance, radiation therapy is definitely indicated for a local control benefit. I plan to provide a total dose of 42.56 Gy in 16 fractions to the entire right breast followed by a 10 Gy in 4 fraction lumpectomy cavity boost. We will begin treatment planning on Thursday. We discussed radiation logistics, potential acute and late side effects in detail, and the patient agreed to proceed as recommended. Signed by Kar Roberts MD: 07/26/2020 10:42:17 AM <<Signature on File>> CPT Code: CPT Code:
== END 2020-07-26 06:13 | disposition home or self-care (01) ==
LOC: ONCMED 06:14
PROVIDERS: PCP Family Medicine; Visit Provider Radiology Radiation Oncology
DX: C50.411 Malignant neoplasm of upper-outer quadrant of right female breast (principal); Z17.0 Estrogen receptor positive status [ER+]; M81.0 Age-related osteoporosis without current pathological fracture; E78.5 Hyperlipidemia, unspecified; J45.909 Unspecified asthma, uncomplicated; Z80.3 Family history of malignant neoplasm of breast
CPT/HCPCS: 99215

== ENCOUNTER 2020-08-27 05:22 | Outpatient (RCR) | payer MEDICARE, BC, SELFPAY ==
--- NOTE | 2020-07-31 | CT_ITS ---
Radiation Therapy Planning CT images; total exam DLP: 215.97 mGy-cm MTDD
--- NOTE | 2020-08-13 11:54 | N.ONRAD NP_ITS ---
Radiation Oncology Weekly Treatment Management Patient: Bree Mendez MR#: [id number] : 1945 Attending Physician: Dr. Rafita Wheatley Date of Service: 08/13/2020 Diagnosis: breast cancer Treatment Site: Right breast Dose: 13.3 Gy of a prescribed 42.5 Gy. Review of Systems: The patient denied any complaints. Vital Signs: Weight - 121 lbs. Temperature -98.5 F, BP -125/77 mm (hg). Pulse ???75 bpm, Respirations - 18, oxygen saturation was 95% on room air Physical Exam: The right breast did not demonstrate any erythema. Imaging: Radiation therapy imaging related to accurate target localization (i.e. KV, MV and CBCT) was reviewed. Appropriate changes, if any, were made to ensure treatment accuracy. Plan: Continue hypofractionated breast radiotherapy as planned. Signed by: Dr. Rafita Wheatley 08/13/2020 11:52:23 AM
--- NOTE | 2020-08-20 11:09 | ONCRAD TMN_ITS ---
Radiation Oncology Weekly Treatment Management Patient: Pope Bree MR#: [id number] : 1945 Attending Physician: Rafita Wheatley M.D. Date of Service: 08/20/2020 Diagnosis: breast cancer Treatment Site: Right breast Dose: 23.9 Gy of a prescribed 42.5 Gy. Review of Systems: The patient denied any complaints. Vital Signs: Weight - 121 lbs. Temperature -98.5 F, BP -125/77 mm (hg). Pulse ???75 bpm, Respirations - 18, oxygen saturation was 95% on room air Physical Exam: The right breast did not demonstrate any erythema. Imaging: Radiation therapy imaging related to accurate target localization (i.e. KV, MV and CBCT) was reviewed. Appropriate changes, if any, were made to ensure treatment accuracy. Plan: Continue hypofractionated breast radiotherapy as planned. Signed by: Dr. Rafita Wheatley 08/27/2020 11:19:28 AM
--- NOTE | 2020-08-27 11:43 | ONCRAD TMN_ITS ---
Radiation Oncology Weekly Treatment Management Patient: Pope Bree MR#: [id number] : 1945 Attending Physician: Rafita Wheatley M.D. Date of Service: 08/27/2020 Diagnosis: breast cancer Treatment Site: Right breast Dose: 31.9 Gy of a prescribed 42.5 Gy. Review of Systems: The patient denied any complaints. Vital Signs: Weight - 152 lbs. Temperature -98.8 F, BP -135/71 mm (hg). Pulse ???77 bpm, Respirations - 18 Physical Exam: The right breast did not demonstrate any erythema. Imaging: Radiation therapy imaging related to accurate target localization (i.e. KV, MV and CBCT) was reviewed. Appropriate changes, if any, were made to ensure treatment accuracy. Plan: Continue hypofractionated breast radiotherapy as prescribed. Signed by: Dr. Rafita Wheatley 08/27/2020 11:41:49 AM
== END 2020-08-27 23:59 | disposition home or self-care (01) ==
LOC: ONCMED 05:22
PROVIDERS: PCP Family Medicine; Visit Provider Radiology Radiation Oncology
DX: Z51.0 Encounter for antineoplastic radiation therapy (principal); C50.411 Malignant neoplasm of upper-outer quadrant of right female breast; Z17.0 Estrogen receptor positive status [ER+]
CPT/HCPCS: 77280; 77295; 77300; 77334; 77336; 77412; 77417

== ENCOUNTER → 2020-09-12 11:15 | Outpatient (BNVA) | payer MEDICARE, BC, SELFPAY | PROVIDERS: PCP Family Medicine; Visit Provider Specialist | DX: M19.011 Primary osteoarthritis, right shoulder (principal); M25.511 Pain in right shoulder; M25.512 Pain in left shoulder | CPT/HCPCS: 73030 ==

== ENCOUNTER 2020-09-14 05:39 | Outpatient (RCR) | payer MEDICARE, BC, SELFPAY ==
--- NOTE | 2020-09-14 11:01 | ONCRAD EPV_ITS ---
Radiation Oncology Established Patient Note Patient: Bree Mendez MR#: [id number] : 1945 Attending Physician: Rafita Wheatley M.D. Date of Service: 09/14/2020 Bree Mendez returned to my office this morning for a routinely scheduled post-radiotherapy appointment. She completed adjuvant radiotherapy in July for the post-operative management of her stage IA (T1bN0) Grade I invasive ductal carcinoma (ER(+), ID(+), and Her-2(-)) of the upper-outer quadrant of the right breast. Radiotherapy was administered between the dates of August 07, 2020 through August 31, 2020. A prescribed dose of 42.6 Gy was delivered in 16 fractions over 24 elapsed days. On review of systems, she did not report any breast complaints. On physical examination, she weighed 151 lbs. The temperature was 99.2???F. Her blood pressure was 130/87 mmHg. The pulse was 87 bpm and the respiratory rate was 18 breaths/min. Examination of the right breast did not reveal any significant erythema nor hyperpigmentation. In summary, the Bree Mendez returned for a routine post-radiotherapy follow-up. She did not have any residual adverse effects from treatment. The patient will continue follow-up with her medical oncologist as scheduled. Signed by: Dr. Rafita Wheatley 09/14/2020 11:00:01 AM
== END 2020-09-27 23:59 | disposition home or self-care (01) ==
LOC: ONCMED 05:39
PROVIDERS: PCP Family Medicine; Visit Provider Radiology Radiation Oncology
DX: Z51.0 Encounter for antineoplastic radiation therapy (principal); C50.411 Malignant neoplasm of upper-outer quadrant of right female breast; Z17.0 Estrogen receptor positive status [ER+]
CPT/HCPCS: 77336; 77412; 77417

== ENCOUNTER 2020-09-22 11:21 | Emergency (ER) | payer MEDICARE, BC, SELFPAY ==
[2020-09-22 11:23] VITALS: BP 150/85; PULSE 77; RESP 18; TEMP 36.6; O2SAT 97; BMI 23.3
--- NOTE | 2020-09-22 11:23 | XRR_ITS ---
PROCEDURE INFORMATION: Exam: XR Chest, 1 View Exam date and time: 09/22/2020 11:29 AM Age: 75 years old Clinical indication: Cough; Additional info: Dyspnea/cough TECHNIQUE: Imaging protocol: XR of the chest Views: 1 view. COMPARISON: No relevant prior studies available. FINDINGS: Lungs: There are pulmonary parenchymal calcifications consistent with remote granulomatous organism exposure. Prominent interstitial markings. There are patchy bibasilar opacities. Pleural space: Right costophrenic angle is not completely visualized. No pleural effusion. No pneumothorax. Heart/Mediastinum: There are calcified mediastinal and perihilar lymph nodes consistent with prior granulomatous exposure. Bones/joints: Unremarkable. XR/XR chest 1V portable [id number] IMPRESSION: Patchy bibasilar opacities are nonspecific. Differential includes scar tissue, pneumonia, and or neoplasm.
--- NOTE | 2020-09-22 11:33 | W.ED.SOB ---
HPI - SOB/Dyspnea General: Chief Complaint: COVID symptoms Stated Complaint: SOB Time Seen by Provider: 09/22/20 11:22 History of Present Illness: HPI Narrative: 75-year-old female comes in complaining of shortness of breath and cough weakness generalized flu symptoms for the last 6 to 7 days. She also has had diarrhea during that time. She denies any productive cough. No chest pain or abdominal pain. MD elicited complaint: shortness of breath and cough Onset (ago): day(s) (7) Timing: constant Severity: mild Exacerbating factors: exertion and coughing Relieving factors: rest Associated symptoms: Reports cough, myalgias and nausea; Deny abdominal pain, chest congestion, chest pain, diaphoresis, dizziness, extremity pain, fever(s), hemoptysis, lightheadedness, orthopnea, palpitations, paresthesias, polydipsia, polyuria, rash, sense of impending doom, syncope or vomiting Treatment prior to arrival: none Review of Systems Const: Denies: fever(s) or diaphoresis ENMT: Denies: throat pain, ear or mastoid pain, nasal discharge or nasal congestion Card: Denies: chest pain, palpitations, lightheadedness, syncope or orthopnea Resp: Denies: hemoptysis or chest congestion GI: Reports: nausea; Denies: abdominal pain or vomiting : Denies: flank pain, difficulty voiding, dysuria, urinary frequency or urinary urgency Musc: Denies: extremity pain Skin/Breast: Denies: rash or pruritus Neuro: Denies: dizziness Endo: Denies: polydipsia PFSH ED PFSH: Medical History Breast cancer, right Primary osteoarthritis of right knee Surgical History H/O colonoscopy 2007 H/O eye surgery cataract and glaucoma H/O removal of cyst Hx of breast biopsy Status post right breast lumpectomy (06/27/20) With sentinel lymph node biopsy Family History Mother Cancer Father Cancer Other Stroke Denies family history of Diabetes Anesthesia complication Bleeding disorder Social History Smoking and tobacco status: never smoked Alcohol intake: current Alcohol intake frequency: holidays/special occasions only Household members: spouse Marital status: Current occupational status: retired History of recent travel: No Physical Exam Const: COMMON NORMALS: no acute distress GENERAL APPEARANCE: cooperative and comfortable ORIENTATION/CONSCIOUSNESS: Yes awake, Yes oriented to person, Yes oriented to place and Yes oriented to time HENMT: COMMON NORMALS: normocephalic, atraumatic and hearing grossly normal bilaterally HEAD & SCALP: normocephalic and atraumatic Neck/C-Spine: COMMON NORMALS: no JVD Resp: COMMON NORMALS: normal respiratory effort, No retractions, No use of accessory muscles and clear to auscultation bilaterally AUSCULTATION: clear to auscultation bilaterally Cardio: COMMON NORMALS: no JVD, regular rate, regular rhythm and No murmurs present (Cardio) RATE: regular rate RHYTHM: regular rhythm GI: COMMON NORMALS: Soft to palpation and No hepatosplenomegaly present AUSCULTATION: Yes normoactive bowel sounds PALPATION: Yes Soft to palpation, No Tenderness to palpation present (GI), No Guarding due to palpation present (GI) and Yes No hepatosplenomegaly present Extremity: COMMON NORMALS: normal to inspection, capillary refill normal, no clubbing, cyanosis or edema, no calf tenderness and no pedal edema Neuro: SENSORIUM/ORIENTATION: Yes oriented to person, Yes oriented to place and Yes oriented to time Skin: COMMON NORMALS: no rashes or lesions noted GENERAL SKIN EXAM: no rashes or lesions noted Course Vital Signs: Vital signs: Vital Signs Temperature 98.4 F 09/22/20 15:18 Pulse Rate 79 09/22/20 16:24 Respiratory Rate 20 H 09/22/20 16:24 Blood Pressure 139/87 09/22/20 16:24 Pulse Oximetry 98 09/22/20 16:24 MDM - SOB/Dyspnea MDM Narrative: Medical decision making narrative: Rapid antigen for Covid was positive. Will discharge home with dexamethasone and albuterol. Had a discussion with the patient risk benefits of monoclonal antibody infusion as well as the fact that is only approved as an emergency authorization use drug. After discussion she wished to proceed she was infused and discharged home without any complications to maintain self quarantine. Additionally return to the emergency room if she has any worsening of symptoms or shortness of breath we will have her monitor O2 sat with a finger sat monitor at home. Lab Data: Labs: Lab Results 09/22/20 09/22/20 09/22/20 Range/Units 12:03 12:19 12:19 WBC 4.0 (4.0-10.0) 10^3/ uL RBC 3.96 L (4.1-5.3) 10^6/u L Hgb 12.1 (11.5-15.3) g/dL Hct 37.4 (37.0-47.0) % MCV 94.4 (81-99) fL MCH 30.6 (28.0-34.0) pg MCHC 32.4 (30.0-36.0) g/dL RDW 15.0 (12.1-15.1) % Plt Count 213 (130-400) 10^3/c mm MPV 11.2 H (7.4-10.4) fL Neut % (Auto) 55.1 % Lymph % (Auto) 30.1 % [place] % (Auto) 14.0 % Eos % (Auto) 0.0 % Baso % (Auto) 0.3 % Neut # (Auto) 2.20 (1.8-7.7) 10^3/u L Lymph # (Auto) 1.2 (0.8-4.8) 10^3/u L [place] # (Auto) 0.6 (0.2-0.9) 10^3/u L Eos # (Auto) 0.0 (0.0-0.8) 10^3/u L Baso # (Auto) 0.0 (0.0-0.1) 10^3/u L Nucleated RBC % (a uto) 0 % Nucleated RBCs # 0.0 /100WBC D-Dimer 0.97 H (0-0.59) ug/mIFE U Specimen Type Arterial Sample Site Radial, left ABG pH 7.52 H (7.35-7.45) ABG pCO2 28.3 L (35-45) mmHg ABG pO2 84.9 (80.0-100.0) mmH g ABG HCO3 23.0 (22-26) mmol/L ABG Base Excess 1.0 (-2.0-2.0) mmol/ L John Paul Test Pos Hematocrit 38.4 (37-47) % O2 Delivery Device Room air Cardiovascular Specialist ID Gd Sodium (136-145) mmol/L Potassium (3.5-5.1) mmol/L Chloride (98-107) mmol/L Carbon Dioxide (22-29) mmol/L Anion Gap (5-19) BUN (8-23) mg/dL Creatinine (0.5-0.9) mg/dL GFR Calculation Glucose (65-115) mg/dL Calculated Osmolal ity (285-295) mOsm/k g Lactic Acid (0.5-2.2) mmol/L Calcium (8.5-10.5) mg/dL Total Bilirubin (0.15-1.2) mg/dL AST (0-32) U/L ALT (0-33) U/L Alkaline Phosphata se (35-105) IU/L C-Reactive Protein (0.0-4.9) mg/L Total Protein (6.6-8.7) g/dL Albumin (3.5-5.2) g/dL Globulin (1.3-4.6) g/dL SARS-CoV-2 Ag (Rap id) (Negative) 09/22/20 09/22/20 09/22/20 Range/Units 12:19 12:19 12:25 WBC (4.0-10.0) 10^3/ uL RBC (4.1-5.3) 10^6/u L Hgb (11.5-15.3) g/dL Hct (37.0-47.0) % MCV (81-99) fL MCH (28.0-34.0) pg MCHC (30.0-36.0) g/dL RDW (12.1-15.1) % Plt Count (130-400) 10^3/c mm MPV (7.4-10.4) fL Neut % (Auto) % Lymph % (Auto) % [place] % (Auto) % Eos % (Auto) % Baso % (Auto) % Neut # (Auto) (1.8-7.7) 10^3/u L Lymph # (Auto) (0.8-4.8) 10^3/u L [place] # (Auto) (0.2-0.9) 10^3/u L Eos # (Auto) (0.0-0.8) 10^3/u L Baso # (Auto) (0.0-0.1) 10^3/u L Nucleated RBC % (a uto) % Nucleated RBCs # /100WBC D-Dimer (0-0.59) ug/mIFE U Specimen Type Sample Site ABG pH (7.35-7.45) ABG pCO2 (35-45) mmHg ABG pO2 (80.0-100.0) mmH g ABG HCO3 (22-26) mmol/L ABG Base Excess (-2.0-2.0) mmol/ L John Paul Test Hematocrit (37-47) % O2 Delivery Device Cardiovascular Specialist ID Sodium 136 (136-145) mmol/L Potassium 3.5 (3.5-5.1) mmol/L Chloride 101 (98-107) mmol/L Carbon Dioxide 22 (22-29) mmol/L Anion Gap 16.5 (5-19) BUN 17 (8-23) mg/dL Creatinine 0.7 (0.5-0.9) mg/dL GFR Calculation Not Reportable Glucose 92 (65-115) mg/dL Calculated Osmolal ity 283 L (285-295) mOsm/k g Lactic Acid 1.1 (0.5-2.2) mmol/L Calcium 9.3 (8.5-10.5) mg/dL Total Bilirubin 0.7 (0.15-1.2) mg/dL AST 25 (0-32) U/L ALT 18 (0-33) U/L Alkaline Phosphata se 64 (35-105) IU/L C-Reactive Protein 1.1 (0.0-4.9) mg/L Total Protein 7.2 (6.6-8.7) g/dL Albumin 4.3 (3.5-5.2) g/dL Globulin 2.9 (1.3-4.6) g/dL SARS-CoV-2 Ag (Rap id) Positive H (Negative) Discharge Plan Discharge Patient Disposition: Home Clinical Impression: COVID-19 Condition: Stable Prescriptions: New albuterol sulfate 90 mcg/actuation HFA aerosol inhaler 2 inh INHALATION Q4H PRN (Reason: shortness of breath or wheezing) Qty: 18 RF: 0 dexamethasone 6 mg tablet 6 mg PO DAILY Qty: 7 RF: 0 No Action mayo extract 250 mg capsule 250 mg PO DAILY@10 RF: 0 turmeric-turmeric root extract 450-50 mg capsule 1 cap PO DAILY@10 RF: 0 krill oil 500 mg capsule 500 mg PO DAILY@10 RF: 0 ascorbate calcium (vitamin C) 500 mg tablet 500 mg PO DAILY@10 RF: 0 cholecalciferol (vitamin D3) 50 mcg (2,000 unit) capsule 50 mcg PO DAILY@10 RF: 0 Tylenol Arthritis 650 mg Tablet Extended Release 650 mg PO Q12H PRN (Reason: Pain) RF: 0 Colace 100 mg capsule 100 mg PO BID@10,21 RF: 0 Discharge Orders: Discharge ED (Routine); Ordered 09/22/20 Ordered By: Aamir Kumar Referrals: Ancelmo Bolton MD [Primary Care Provider] - Discharge Diet: Usual diet Discharge Activity: Limit activity as instructed Activity Restrictions/Additional Instructions: Tested positive for COVID-19. You should maintain quarantine for 14 more days. You were given a monoclonal antibody infusion to shorten the length of the disease and decrease the severity hospital representatives will call with follow-up on this treatment. If you have any worsening symptoms or shortness of breath return to the emergency room. Monitor your oxygen saturation at home with a monitor given to you today. Coding Level of Care Code ED Label Remover for Jorge Fwd Exam Comprehensive Monoclonal Antibody Treatments Inclusion/Exclusion Criteria weight >/= 40 kg and + direct Sars-Cov-2 test less than 7-10 days ago age >/= 65 and has immunosuppressive disease Patient education patient/family/caregiver received/reviewed fact sheet, Emergency Use Authorization/unapproved drug status discussed with patient/family/caregiver, alternatives to this treatment discussed with patient/family/caregiver, risks and benefits of medication reviewed with patient/family/caregiver, patient/family/caregiver given opportunity for questions, which were answered and patient consents to receiving Monoclonal Antibody Treatment Plan for treatment Meets criteria for Monoclonal Antibody infusion Monoclonal antibody information given
[2020-09-22 12:21] LABS: ABG PCO2 28.3 mmHg (35-45); ABG PH Result 7.52 (7.35-7.45); Arterial Blood Gas Hematocrit 38.4 % (37-47); Blood Gas Allen Test Pos; Blood Gas Operator Identificat GD; Blood Gas Sample Site Radial, left; Blood Gas Sample Type Arterial; Oxygen Device ROOM AIR; PO2 ABG 84.9 mmHg (80.0-100.0)
[2020-09-22 13:13] LABS: Basophils % 0.3 %; Hematocrit 37.4 % (37.0-47.0); Hemoglobin 12.1 g/dL (11.5-15.3); Lymphocytes # 1.2 10^3/uL (0.8-4.8); Lymphocytes % 30.1 %; Mean Corpuscular HGB Conc 32.4 g/dL (30.0-36.0); Mean Corpuscular Hemoglobin 30.6 pg (28.0-34.0); Mean Corpuscular Volume 94.4 fL (81-99); Mean Platelet Volume 11.2 fL (7.4-10.4); Monocytes # 0.6 10^3/uL (0.2-0.9); Neutrophils % 55.1 %; Nucleated Red Blood Cells % 0 %; Platelet Count 213 10^3/cmm (130-400); Red Blood Count 3.96 10^6/uL (4.1-5.3)
[2020-09-22 13:33] LABS: D Dimer 0.97 ug/mIFEU (0-0.59)
[2020-09-22 13:34] LABS: Alanine Aminotransferase 18 U/L (0-33); Albumin Level 4.3 g/dL (3.5-5.2); Alkaline Phosphatase 64 IU/L (35-105); Anion Gap 16.5 (5-19); Aspartate Amino Transferase 25 U/L (0-32); Blood Urea Nitrogen 17 mg/dL (8-23); C Reactive Protein 1.1 mg/L (0.0-4.9); Calcium 9.3 mg/dL (8.5-10.5); Carbon Dioxide 22 mmol/L (22-29); Chloride 101 mmol/L (98-107); Globulin 2.9 g/dL (1.3-4.6); Glucose 92 mg/dL (65-115); Lactic Sepsis W/Reflex 1.1 mmol/L (0.5-2.2); Osmolality Calculated 283 mOsm/kg (285-295); Potassium 3.5 mmol/L (3.5-5.1); Sodium 136 mmol/L (136-145); Total Bilirubin 0.7 mg/dL (0.15-1.2); Total Protein 7.2 g/dL (6.6-8.7)
[2020-09-22 13:39] LABS: SARS Covid-2 Antigen Positive (Negative)
[2020-09-22 15:18] VITALS: BP 145/75; PULSE 72; RESP 20; TEMP 36.9; O2SAT 98
[2020-09-22 15:46] VITALS: BP 133/85; PULSE 86; RESP 20; O2SAT 97
[2020-09-22 16:11] VITALS: BP 136/72; PULSE 174; RESP 20; O2SAT 100
[2020-09-22 16:24] VITALS: BP 139/87; PULSE 79; RESP 20; O2SAT 98
[2020-09-22 17:25] VITALS: BP 130/69; PULSE 68; RESP 20; O2SAT 97
--- NOTE | 2020-09-25 13:22 | DCPLANNER ---
Addendum entered by Fanny Gibbs 10/11/20 11:02: cinema or theatre manager called to check on patient after receiving the BAM infusion. Patient stated that she is doing pretty good. Still has a cough. Has not been admitted to hospital. Addendum entered by Fanny Gibbs 09/27/20 15:50: cinema or theatre manager called to check on patient after receiving the BAM infusion. Patient stated that she is feeling much better, she is not nauseous, and not as weak. Patient stated that it seems easier for her to breath. Original Note: cinema or theatre manager had message that patient received the BAM infusion. cinema or theatre manager called to check on patient after receiving the infusion. Patient stated stated that she tolorated the infusion well. Stated that before the infusion that she was nausea, she was weak / tired. She stated that she never lost her sense of taste or smell. She had a little cough, and she did not have a fever. Patient stated that after the infusion, she feels like she is breathing better, that her nausea is better, she does not feel as tires or as weak as she has. Patient stated that she has not been able to sleep. cinema or theatre manager called [facility], patients primary care physician, a follow up appointment is scheduled for Thursday, October 08, 2020 at 10:[address] Bolton. Patient also has a follow up appointment scheduled with Dr. Francisco at the [facility] for Thursday, October 08, 2020 at 11:15. cinema or theatre manager called patient and gave patient both of the appointments that were scheduled.
== END 2020-09-22 17:26 | disposition home or self-care (01) ==
PROVIDERS: Emergency Provider Family Medicine; PCP Family Medicine
DX: U07.1 COVID-19 (principal); Z85.3 Personal history of malignant neoplasm of breast
CPT/HCPCS: 12345; 36600; 71045; 80053; 82803; 83605; 85025; 85378; 86140; 87426; 96365; 99282; 99284; J7050

== ENCOUNTER 2020-10-23 14:59 | Outpatient (RCR) | payer MEDICARE, BC, SELFPAY ==
--- NOTE | 2020-10-13 12:29 | ONC FU_ITS ---
Dr. Arshad Patient Follow-Up Note Patient: rBee Mendez Unit #: [id number]: [id number] Dicatated By: Mateus Arshad M.D.Date of Visit:Oct 09, 2020 Onc Med Follow-up/Prog Note Chief Complaint: Breast cancer. 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 Her yearly screening mammogram on 04/11/2020 was BI-RADS 0. Findings included a slightly spiculated 5 mm lesion in the upper outer right breast. Her diagnostic mammogram on 05/11/2020 showed persistent slightly spiculated 5 mm upper outer quadrant breast lesion. Further evaluation with ultrasound showed an ill-defined hypoechoic lesion at the 10 o'clock position measuring approximately 4.3 x 4.1 x 4.3 mm. The findings were BI-RADS 4, suspicious, and an ultrasound-guided core needle biopsy of the right breast on 05/22/2020 showed grade 1 invasive ductal carcinoma. The breast prognostic profile showed ER positive at 80% and TN positive at 70%. It was negative for overexpression of HER-2/cece, 1+ by IHC and amplification ratio by FISH of 1.0 with 2.2 HER-2 copies/cell. The Ki-67 was intermediate at 10%. On 07/02/2020 she underwent right breast lumpectomy and right axillary sentinel lymph node biopsy. Pathology showed just a small residual focus of grade 1 invasive ductal carcinoma measuring 2.7 mm. The margins were negative. There was no involvement in 3 axillary sentinel lymph nodes. Pathologic staging was IA (T1b, pN0, M0). As she appeared to have very low risk disease, I felt that adjuvant chemotherapy was not indicated, and I did not request Oncotype DX. She was referred to Dr. Wheatley for radiation oncology consultation, and she subsequently underwent radiation to the right breast, completed on 08/31/2020 to a total dose of 4260 cGy, administered in 16 fractions. She tolerated treatment well. She is seen for a follow-up visit. She indicates that on 09/22/2020 she was diagnosed with COVID-19 virus infection. She had presented to the emergency room with trouble breathing. She has had an uneventful recovery. She says her energy was pretty low, but it is getting better now. Her ECOG score is 1. She had lost appetite, but that also is better now and she has regained weight. She is no longer having fever. She did have some sweating at night, that also has resolved. She still has some shortness of breath with activity and she still has some residual cough. She does not complain of chest pain. She has no GI/ complaints other than frequent urination. She has been having arthritis pain in her right knee, and she was given an injection to the right knee yesterday. She had a previous steroid injection to her shoulder, and that has helped. She has no focal neurologic symptoms. Medications: Cetirizine HCl 1 Tablet (of 10 mg) Oral PRN, Citracal +D3 1 Tablet (of 500-630 Units/mg) Tablet, chewable Oral at bedtime, Curcumin 95 1 Capsule (of 500 mg) Oral daily, Tawana 1 Capsule (of 500 mg) Oral daily, itch relief cream 1 Cream Topical PRN, Lutein 1 Capsule (of 20 mg) Oral daily, Magnesium 1 Tablet (of 500 mg) Oral daily, Hard[place] 3 1 Capsule (of 500 mg) Oral daily, Systane 1 Drop(s) (of 0.4-0.3 %) Solution Ophthalmic daily, Vitamin C 1 Tablet (of 1000 mg) Oral daily, Vitamin D3 1 Capsule (of 2000 Units) Oral daily Allergies: Actonel Vital Signs: Performed on Oct 09, 2020 09:51 Height - 66.00 in Weight - 149.2 lbs (LOW) BSA - 1.77 sq.m BMI - 24.08 Temperature - 97.8 F (LOW) Pulse - 88 /min Respiration - 18 /min BP - 141/70 mm(hg) (HIGH) O2 Sat - 97 % Pain - 0 Physical Examination: Constitutional - She looks good generally, Eyes - Sclerae nonicteric. Conjunctivae clear, ENMT - No lesions noted in the oral cavity, Hematologic/Lymphatic - No cervical, clavicular, or axillary adenopathy, Respiratory - Lungs are clear with good air movement bilaterally, Cardiovascular - Heart rhythm is regular. There is no murmur, gallop, or rub noted, Abdomen - Soft. Liver and spleen are not enlarged. There is no abdominal mass or ascites noted and there is no inguinal adenopathy, Extremities - No edema, Neurologic - No focal neurologic deficits noted. Lab/Imaging: Test performed on Oct 08, 2020 10:40 Glucose 91 mg/dL BUN 13 mg/dL Creatinine 0.76 mg/dL Cr Clearance (Est) 70.44 mL/min Sodium 140 mmol/L Potassium 4.0 mmol/L Chloride 103 mmol/L CO2 28 mmol/L Calcium 9.6 mg/dL Protein, Total 6.9 g/dL Albumin 4.3 g/dL Globulin 2.6 g/dL Bilirubin, Total 0.7 mg/dL Alkaline Phosphatase 68 IU/L AST (SGOT) 16 IU/L ALT (SGPT) 20 IU/L WBC 10.0 10^9/L RBC 4.09 10^12/L HGB 12.7 g/dL HCT 37.9 % MCV 92.7 fl MCH 31.1 pg MCHC 33.5 g/dL RDW 14.7 % Platelet Count 257 10^9/L MPV 11.3 fL Neutrophils (Gran) 7550 10^9/L Lymphocytes 1660 10^9/L Monocytes 720 10^9/L Eosinophils 50 10^9/L Basophils 20 10^9/L Manual Lymphocytes 16.6 % Manual Monocytes 7.2 % Manual Eosinophils 0.5 % Manual Basophils 0.2 % Historic Problem List: 1. Grade 1 invasive ductal carcinoma of the right breast, stage IA (T1b, pN0, M0), ER/TN positive and HER-2/cece negative. 2. She underwent ultrasound directed core needle biopsy of the right breast on 05/22/2020, and she underwent right breast lumpectomy with axillary sentinel lymph node biopsy on 07/02/2020. Adjuvant chemotherapy was not recommended. 3. She underwent radiation to the right breast, completed on 08/31/2020 to a total dose of 4260 cGy administered over 16 fractions. 4. Glaucoma. 5. Hyperlipidemia. 6. Asthma. 7. Degenerative arthritis. 8. Osteoporosis. 9. She was diagnosed with COVID-19 virus infection on 09/22/2020. She has had uneventful recovery. Problems Addressed with this Encounter and Plan: 1. Grade 1 invasive ductal carcinoma of the right breast, stage IA (T1b, pN0, M0), ER/TN positive and HER-2/cece negative. She underwent right breast lumpectomy with axillary sentinel lymph node biopsy on 07/02/2020. Adjuvant chemotherapy was not recommended. She then underwent radiation to the right breast, completed on 08/31/2020 to a total dose of 4260 cGy administered over 16 fractions. She tolerated the radiation well. With ER/TN positive disease, she will now begin adjuvant hormonal therapy with anastrozole 1 mg daily. The recommended course of treatment will be 5 years. I reviewed anticipated side effects which may include osteoporosis and musculoskeletal pain, among others. She will be scheduled for a follow-up visit in 3 months. 2. Osteoporosis. She had previously been on treatment with Actonel, which she tolerated poorly due to muscle spasms and other side effects. She will need a baseline DEXA scan prior to starting the anastrozole, and she will have further treatment for bone health as indicated. 3. Degenerative arthritis. She may potentially benefit with physical therapy, and I will see if that can be arranged in [place]. Signed By: Mateus Arshad M.D. <<Signature on File>>
--- NOTE | 2020-10-23 15:27 | XR_ITS ---
WS: [id number] DEXA (DUAL ENERGY X-RAY ABSORPTIOMETRY) Bone mineral density was performed using a [employer] machine. HISTORY: OSTEOPOROSIS/OSTEOPENIA, ESTROGEN RECEPTOR POSITIVE STATUS COMPARISON: None available. Lumbar spine BMD (L1-L4): 0.992 g/cm2 T score: -1.6 Z score: 0.1 Total hip BMD: Left: 0.998 g/cm2. T score: -0.1 Z score: 1.5 Right: 0.950 g/cm2. T score: -0.5 Z score: 1.1 10 year probability of a major osteoporotic fracture is 17%. XR/XR DEXA axial skeleton* [id number] IMPRESSION: OSTEOPENIA based upon the WHO classification for females.
== END 2020-10-28 23:59 | disposition home or self-care (01) ==
LOC: RADWPI 14:59
PROVIDERS: PCP Family Medicine; Visit Provider Internal Medicine Medical Oncology
DX: C50.411 Malignant neoplasm of upper-outer quadrant of right female breast (principal); M81.0 Age-related osteoporosis without current pathological fracture; Z17.0 Estrogen receptor positive status [ER+]; Z86.16 Personal history of COVID-19; Z92.3 Personal history of irradiation; Z79.811 Long term (current) use of aromatase inhibitors
CPT/HCPCS: 77080; 99214

== ENCOUNTER 2020-10-30 06:00 | Outpatient (RCR) | payer MEDICARE, BC, SELFPAY | END 2020-11-25 23:59 | disposition home or self-care (01) | LOC: MPT 06:00 | PROVIDERS: PCP Family Medicine; Referring Provider Internal Medicine Medical Oncology; Visit Provider Internal Medicine Medical Oncology | DX: M25.511 Pain in right shoulder (principal) | CPT/HCPCS: 97110; 97162; G0283 ==

== ENCOUNTER 2020-11-26 06:00 | Outpatient (RCR) | payer MEDICARE, BC, SELFPAY | END 2020-12-26 23:59 | disposition home or self-care (01) | LOC: MPT 06:00 | PROVIDERS: PCP Family Medicine; Referring Provider Internal Medicine Medical Oncology; Visit Provider Internal Medicine Medical Oncology | DX: M25.512 Pain in left shoulder (principal); M25.511 Pain in right shoulder | CPT/HCPCS: 97110; 97140; G0283 ==

== ENCOUNTER 2020-12-27 06:00 | Outpatient (RCR) | payer MEDICARE, BC, SELFPAY | END 2021-01-25 23:59 | disposition home or self-care (01) | LOC: MPT 06:00 | PROVIDERS: PCP Family Medicine; Referring Provider Internal Medicine Medical Oncology; Visit Provider Internal Medicine Medical Oncology | DX: M25.512 Pain in left shoulder (principal); M25.511 Pain in right shoulder | CPT/HCPCS: 97110; 97140; G0283 ==

== ENCOUNTER 2021-01-31 13:24 | Outpatient (CLI) | payer MEDICARE, BC, SELFPAY ==
--- NOTE | 2021-02-03 13:34 | ONC FU_ITS ---
Dr. Arshad Patient Follow-Up Note Patient: Bree Mendez Unit #: [id number]: 1945 Dicatated By: Mateus Arshad M.D.Date of Visit:January 31, 2021 Onc Med Follow-up/Prog Note Chief Complaint: Breast cancer. 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 Her yearly screening mammogram on 04/11/2020 was BI-RADS 0. Findings included a slightly spiculated 5 mm lesion in the upper outer right breast. Her diagnostic mammogram on 05/11/2020 showed persistent slightly spiculated 5 mm upper outer quadrant breast lesion. Further evaluation with ultrasound showed an ill-defined hypoechoic lesion at the 10 o'clock position measuring approximately 4.3 x 4.1 x 4.3 mm. The findings were BI-RADS 4, suspicious, and an ultrasound-guided core needle biopsy of the right breast on 05/22/2020 showed grade 1 invasive ductal carcinoma. The breast prognostic profile showed ER positive at 80% and KY positive at 70%. It was negative for overexpression of HER-2/cece, 1+ by IHC and amplification ratio by FISH of 1.0 with 2.2 HER-2 copies/cell. The Ki-67 was intermediate at 10%. On 07/02/2020 she underwent right breast lumpectomy and right axillary sentinel lymph node biopsy. Pathology showed just a small residual focus of grade 1 invasive ductal carcinoma measuring 2.7 mm. The margins were negative. There was no involvement in 3 axillary sentinel lymph nodes. Pathologic staging was IA (T1b, pN0, M0). As she appeared to have very low risk disease, I felt that adjuvant chemotherapy was not indicated, and I did not request Oncotype DX. She was referred to Dr. Wheatley for radiation oncology consultation, and she subsequently underwent radiation to the right breast, completed on 08/31/2020 to a total dose of 4260 cGy, administered in 16 fractions. She tolerated treatment well. She then began adjuvant hormonal therapy with anastrozole 1 mg daily on 10/24/2020. Her baseline DEXA scan showed mild osteopenia with T score -1.6 in the lumbar spine, -0.1 in the left hip and -0.5 in the right hip. She is seen for a follow-up visit. She has been feeling pretty good generally, though she still has fatigue following a COVID-19 virus infection in August. She also is having some trouble getting motivated and she also describes mild cognitive dysfunction. Her ECOG score is 1. She has good appetite. She does not have fever, night sweats, or hot flashes. She says her breathing is not bad, though she has not been as active since having Covid. She does not have much cough and she does not complain of chest pain. She has no GI or complaints. She does complain that she tends to wake up with her shoulders hurting. She has just finished some physical therapy for that. She also has pain in her right knee. She has just very occasional headache. She is sometimes off balance. She has no focal neurologic symptoms. Medications: Cetirizine HCl 1 Tablet (of 10 mg) Oral PRN, Citracal +D3 1 Tablet (of 500-630 Units/mg) Tablet, chewable Oral at bedtime, Curcumin 95 1 Capsule (of 500 mg) Oral daily, Tawana 1 Capsule (of 500 mg) Oral daily, itch relief cream 1 Cream Topical PRN, Lutein 1 Capsule (of 20 mg) Oral daily, Magnesium 1 Tablet (of 500 mg) Oral daily, [place] 3 1 Capsule (of 500 mg) Oral daily, Systane 1 Drop(s) (of 0.4-0.3 %) Solution Ophthalmic daily, Vitamin C 1 Tablet (of 1000 mg) Oral daily, Vitamin D3 1 Capsule (of 2000 Units) Oral daily Allergies: Actonel and Cipro. Vital Signs: Performed on January 31, 2021 14:36 Height - 66.00 in Weight - 151 lbs (HIGH) BSA - 1.77 sq.m BMI - 24.37 Temperature - 98.5 F Pulse - 80 /min Respiration - 18 /min BP - 147/69 mm(hg) (HIGH) O2 Sat - 96 % Pain - 0 Fatigue - 4 Physical Examination: Constitutional - She looks good generally, Eyes - Sclerae nonicteric. Conjunctivae clear, ENMT - No lesions noted in the oral cavity, Hematologic/Lymphatic - No cervical, clavicular, or axillary adenopathy, Respiratory - Lungs are clear with good air movement bilaterally, Cardiovascular - Heart rhythm is regular. There is no murmur, gallop, or rub noted, Abdomen - Soft. Liver and spleen are not enlarged. There is no abdominal mass or ascites noted and there is no inguinal adenopathy, Extremities - Slight edema, Neurologic - No focal neurologic deficits noted. Problem List: 1. Grade 1 invasive ductal carcinoma of the right breast, stage IA (T1b, pN0, M0), ER/KY positive and HER-2/cece negative. 2. Glaucoma. 3. Hyperlipidemia. 4. Asthma. 5. Degenerative arthritis. 6. Osteoporosis. 7. She was diagnosed with COVID-19 virus infection on 09/22/2020. She has had uneventful recovery. Problems Addressed with this Encounter and Plan: Patient with grade 1 invasive ductal carcinoma of the right breast, stage IA (T1b, pN0, M0), ER/KY positive and HER-2/cece negative. She underwent right breast lumpectomy with axillary sentinel lymph node biopsy on 07/02/2020. Adjuvant chemotherapy was not recommended. She then underwent radiation to the right breast, completed on 08/31/2020 to a total dose of 4260 cGy administered over 16 fractions. She began adjuvant hormonal therapy with anastrozole 1 mg daily on 10/24/2020. Thus far she seems to be tolerating the anastrozole reasonably well. She does report some fatigue and she describes some mild cognitive dysfunction, but it is uncertain to what extent those symptoms may be related to her COVID-19 virus infection versus treatment related side effects. For now she will continue the anastrozole at 1 mg daily. She will be scheduled for a follow-up visit in 3 months. Signed By: Mateus Arshad M.D. <<Signature on File>>
== END 2021-01-31 13:25 | disposition home or self-care (01) ==
LOC: ONCMED 13:26
PROVIDERS: PCP Family Medicine; Visit Provider Internal Medicine Medical Oncology
DX: C50.811 Malignant neoplasm of overlapping sites of right female breast (principal); Z17.0 Estrogen receptor positive status [ER+]; H40.9 Unspecified glaucoma; E78.5 Hyperlipidemia, unspecified; J45.909 Unspecified asthma, uncomplicated; M19.90 Unspecified osteoarthritis, unspecified site; M81.0 Age-related osteoporosis without current pathological fracture; Z86.16 Personal history of COVID-19; Z79.811 Long term (current) use of aromatase inhibitors
CPT/HCPCS: 99214

== ENCOUNTER 2021-05-06 13:27 | Outpatient (CLI) | payer MEDICARE, BC, SELFPAY ==
--- NOTE | 2021-05-07 06:53 | ONC FU_ITS ---
Dr. Arshad Patient Follow-Up Note Patient: Bree Mendez Unit #: [id number]: 1945 Dicatated By: Mateus Arshad M.D.Date of Visit:May 06, 2021 Onc Med Follow-up/Prog Note Chief Complaint: Breast cancer. History of Present Illness: This is a 76 year-old woman with grade 1 invasive ductal carcinoma of the right breast, stage IA (T1b, pN0, M0), ER/NV positive and HER-2/cece negative. Her yearly screening mammogram on 04/11/2020 was BI-RADS 0. Findings included a slightly spiculated 5 mm lesion in the upper outer right breast. Her diagnostic mammogram on 05/11/2020 showed persistent slightly spiculated 5 mm upper outer quadrant breast lesion. Further evaluation with ultrasound showed an ill-defined hypoechoic lesion at the 10 o'clock position measuring approximately 4.3 x 4.1 x 4.3 mm. The findings were BI-RADS 4, suspicious, and an ultrasound-guided core needle biopsy of the right breast on 05/22/2020 showed grade 1 invasive ductal carcinoma. The breast prognostic profile showed ER positive at 80% and NV positive at 70%. It was negative for overexpression of HER-2/cece, 1+ by IHC and amplification ratio by FISH of 1.0 with 2.2 HER-2 copies/cell. The Ki-67 was intermediate at 10%. On 07/02/2020 she underwent right breast lumpectomy and right axillary sentinel lymph node biopsy. Pathology showed just a small residual focus of grade 1 invasive ductal carcinoma measuring 2.7 mm. The margins were negative. There was no involvement in 3 axillary sentinel lymph nodes. Pathologic staging was IA (T1b, pN0, M0). As she appeared to have very low risk disease, I felt that adjuvant chemotherapy was not indicated, and I did not request Oncotype DX. She was referred to Dr. Wheatley for radiation oncology consultation, and she subsequently underwent radiation to the right breast, completed on 08/31/2020 to a total dose of 4260 cGy, administered in 16 fractions. She tolerated treatment well. She then began adjuvant hormonal therapy with anastrozole 1 mg daily on 10/24/2020. Her baseline DEXA scan showed mild osteopenia with T score -1.6 in the lumbar spine, -0.1 in the left hip and -0.5 in the right hip. She is seen for a follow-up visit. She has been feeling okay. Her energy has not been as good lately, but at least some of that is attributable to the hot weather. Her ECOG score is 1. She has good appetite. She has no fever or night sweats. She says she has sinus drainage all the time. She does not complain of cough, and she has not been having shortness of breath or chest pain. She has no GI/ complaints other than her bladder does not tend to empty completely. She continues to have some pain in her shoulders and arms, which she says is just normal . Her left knee has occasionally locked up on her. She has no other joint or bone pain. She does not complain of headache. She has become aware that she occasionally feels off balance. She has no numbness/paresthesia or other focal neurologic symptoms. Medications: Cetirizine HCl 1 Tablet (of 10 mg) Oral PRN, Citracal +D3 1 Tablet (of 500-630 Units/mg) Tablet, chewable Oral at bedtime, Curcumin 95 1 Capsule (of 500 mg) Oral daily, Tawana 1 Capsule (of 500 mg) Oral daily, itch relief cream 1 Cream Topical PRN, Lutein 1 Capsule (of 20 mg) Oral daily, Magnesium 1 Tablet (of 500 mg) Oral daily, [place] 3 1 Capsule (of 500 mg) Oral daily, Systane 1 Drop(s) (of 0.4-0.3 %) Solution Ophthalmic daily, Vitamin C 1 Tablet (of 1000 mg) Oral daily, Vitamin D3 1 Capsule (of 2000 Units) Oral daily Allergies: Actonel and Cipro. Vital Signs: Performed on May 06, 2021 14:42 Height - 66.00 in Weight - 147 lbs (LOW) BSA - 1.75 sq.m BMI - 23.73 Temperature - 97.8 F (LOW) Pulse - 70 /min Respiration - 18 /min BP - 128/69 mm(hg) O2 Sat - 98 % Pain - 0 Fatigue - 3 Physical Examination: Constitutional - She looks good generally, Eyes - Sclerae nonicteric. Conjunctivae clear, ENMT - No lesions noted in the oral cavity, Hematologic/Lymphatic - No cervical, clavicular, or axillary adenopathy, Respiratory - Lungs are clear with good air movement bilaterally, Cardiovascular - Heart rhythm is regular. There is no murmur, gallop, or rub noted, Abdomen - Soft. Liver and spleen are not enlarged. There is no abdominal mass or ascites noted and there is no inguinal adenopathy, Extremities - No edema. Dorsalis pedis pulses are palpable bilaterally, Neurologic - No focal neurologic deficits noted. Problem List: 1. Grade 1 invasive ductal carcinoma of the right breast, stage IA (T1b, pN0, M0), ER/NV positive and HER-2/cece negative. 2. Glaucoma. 3. Hyperlipidemia. 4. Asthma. 5. Degenerative arthritis. 6. Osteoporosis. 7. She was diagnosed with COVID-19 virus infection on 09/22/2020. She has had uneventful recovery. Problems Addressed with this Encounter and Plan: Patient with grade 1 invasive ductal carcinoma of the right breast, stage IA (T1b, pN0, M0), ER/NV positive and HER-2/cece negative. She underwent right breast lumpectomy with axillary sentinel lymph node biopsy on 07/02/2020. Adjuvant chemotherapy was not recommended. She then underwent radiation to the right breast, completed on 08/31/2020 to a total dose of 4260 cGy administered over 16 fractions. She began adjuvant hormonal therapy with anastrozole 1 mg daily on 10/24/2020. Since starting the anastrozole she has had some fatigue and some mild cognitive dysfunction. She has had just mild joint pain. She also has noticed that she is occasionally off balance. It is uncertain to what extent any of the symptoms may be related to the anastrozole. Overall, she is still doing well clinically. There has been no evidence of recurrence of the breast cancer. She will continue adjuvant hormonal therapy with anastrozole 1 mg daily. She is to let me know if her symptoms are getting worse. I will otherwise just plan to see her for a follow-up visit in 6 months. Signed By: Mateus Arshad M.D. <<Signature on File>>
== END 2021-05-06 13:28 | disposition home or self-care (01) ==
LOC: ONCMED 13:30
PROVIDERS: PCP Family Medicine; Visit Provider Internal Medicine Medical Oncology
DX: C50.811 Malignant neoplasm of overlapping sites of right female breast (principal); Z17.0 Estrogen receptor positive status [ER+]; H40.9 Unspecified glaucoma; E78.5 Hyperlipidemia, unspecified; J45.909 Unspecified asthma, uncomplicated; M19.90 Unspecified osteoarthritis, unspecified site; M81.0 Age-related osteoporosis without current pathological fracture; Z86.16 Personal history of COVID-19; Z79.899 Other long term (current) drug therapy; Z79.811 Long term (current) use of aromatase inhibitors
CPT/HCPCS: 99214

== ENCOUNTER 2021-05-07 13:59 | Outpatient (CLI) | payer MEDICARE, BC, SELFPAY ==
--- NOTE | 2021-05-07 14:03 | MM_ITS ---
WS: [id number] BILATERAL DIGITAL DIAGNOSTIC MAMMOGRAM MAMMOGRAPHY WITH CAD CLINICAL INFORMATION: HX OF BREAST CA HISTORY: COMPARISON: April 11, 2020 TECHNIQUE: Bilateral CC, MLO, and ML views. FINDINGS: The breasts are composed of heterogeneous fibroglandular density, which can limit the detection of sm all underlying mass lesions. Prior lumpectomy with surgical clips in the right upper-outer breast. A few eggshell calcifications right breast. Unchanged dystrophic punctate calcifications right posterio r breast. No suspicious focal mass, asymmetry, calcifications, or architectural distortion. No evidence of meliza gnancy. MM/[place] [id number] IMPRESSION: BI-RADS: 2-Benign FOLLOW UP: 1 Year Follow-up Recommend return to annual diagnostic mammography.
== END 2021-05-07 14:00 | disposition home or self-care (01) ==
PROVIDERS: PCP Family Medicine; Visit Provider Internal Medicine Medical Oncology
DX: Z85.3 Personal history of malignant neoplasm of breast (principal)
CPT/HCPCS: 77066

== ENCOUNTER 2021-11-05 12:42 | Outpatient (CLI) | payer MEDICARE, BC, SELFPAY ==
[2021-11-05 14:04] LABS: Basophils # 0.1 10^3/uL (0.0-0.1); Basophils % 0.8 %; Eosinophils # 0.1 10^3/uL (0.0-0.8); Eosinophils % 1.1 %; Hematocrit 35.8 % (37.0-47.0); Hemoglobin 11.8 g/dL (11.5-15.3); Lymphocytes # 1.4 10^3/uL (0.8-4.8); Lymphocytes % 22.3 %; Mean Corpuscular Hemoglobin 31.1 pg (28.0-34.0); Mean Corpuscular Volume 94.5 fl (81-99); Mean Platelet Volume 10.6 fL (7.4-10.4); Monocytes # 0.3 10^3/uL (0.2-0.9); Monocytes % 4.9 %; Neutrophils # 4.48 10^3/uL (1.8-7.7); Neutrophils % 70.7 %; Nucleated Red Blood Cells % 0 %; Platelet Count 238 10^3/cmm (130-400); Red Blood Count 3.79 10^6/uL (4.1-5.3); Red Cell Distribution Width 14.8 % (12.1-15.1); White Blood Count 6.3 10^3/uL (4.0-10.0)
[2021-11-05 14:47] LABS: Alanine Aminotransferase 17 U/L (0-33); Albumin Level 4.9 g/dL (3.5-5.2); Alkaline Phosphatase 76 IU/L (35-105); Anion Gap 17.3 (5-19); Aspartate Amino Transferase 24 U/L (0-32); Blood Urea Nitrogen 13 mg/dL (8-23); Carbon Dioxide 24 mmol/L (22-29); Chloride 103 mmol/L (98-107); Globulin 2.5 g/dL (1.3-4.6); Glucose 104 mg/dL (65-115); Osmolality Calculated 290 mOsm/kg (285-295); Potassium 4.3 mmol/L (3.5-5.1); Sodium 140 mmol/L (136-145); Total Bilirubin 0.7 mg/dL (0.15-1.2); Total Protein 7.4 g/dL (6.6-8.7)
[2021-11-05 15:39] LABS: Iron 50 ug/dL (37-145); Percent Saturation 19.9 % (20-50); Thyroid Stimulating Hormone 1.44 uIU/mL (0.27-4.20); Total Iron Binding Capacity 251 mcg/dl; Unsaturated Iron Binding 201 ug/dL (112-347); Vitamin B12 284 pg/mL (232-1245)
[2021-11-05 16:12] LABS: 25 Hydroxy Vitamin D 52 ng/mL (30-100)
--- NOTE | 2021-11-09 11:18 | ONC FU_ITS ---
Dr. Arshad Patient Follow-Up Note Patient: Bree Mendez Unit #: [id number]: 1945 Dicatated By: Mateus Arshad M.D.Date of Visit:Nov 05, 2021 Onc Med Follow-up/Prog Note Chief Complaint: Breast cancer. History of Present Illness: This is a 76 year-old woman with grade 1 invasive ductal carcinoma of the right breast, stage IA (T1b, pN0, M0), ER/NH positive and HER-2/cece negative. Her yearly screening mammogram on 04/11/2020 was BI-RADS 0. Findings included a slightly spiculated 5 mm lesion in the upper outer right breast. Her diagnostic mammogram on 05/11/2020 showed persistent slightly spiculated 5 mm upper outer quadrant breast lesion. Further evaluation with ultrasound showed an ill-defined hypoechoic lesion at the 10 o'clock position measuring approximately 4.3 x 4.1 x 4.3 mm. The findings were BI-RADS 4, suspicious, and an ultrasound-guided core needle biopsy of the right breast on 05/22/2020 showed grade 1 invasive ductal carcinoma. The breast prognostic profile showed ER positive at 80% and [place] positive at 70%. It was negative for overexpression of HER-2/cece, 1+ by IHC and amplification ratio by FISH of 1.0 with 2.2 HER-2 copies/cell. The Ki-67 was intermediate at 10%. On 07/02/2020 she underwent right breast lumpectomy and right axillary sentinel lymph node biopsy. Pathology showed just a small residual focus of grade 1 invasive ductal carcinoma measuring 2.7 mm. The margins were negative. There was no involvement in 3 axillary sentinel lymph nodes. Pathologic staging was IA (T1b, pN0, M0). As she appeared to have very low risk disease, I felt that adjuvant chemotherapy was not indicated, and I did not request Oncotype DX. She was referred to Dr. Wheatley for radiation oncology consultation, and she subsequently underwent radiation to the right breast, completed on 08/31/2020 to a total dose of 4260 cGy, administered in 16 fractions. She tolerated treatment well. She then began adjuvant hormonal therapy with anastrozole 1 mg daily on 10/24/2020. Her other medical illnesses include hyperlipidemia, asthma, degenerative arthritis, and glaucoma. She also has osteopenia. Her baseline DEXA scan showed mild osteopenia with T score -1.6 in the lumbar spine, -0.1 in the left hip and -0.5 in the right hip. She had COVID-19 virus infection in August 2020. She is a non-smoker. She is seen for a follow-up visit. She complains of being more fatigued. In spite of that she has been more active, though she has had ongoing problems with her right knee which also limits her activity. She has good appetite. She has no fever, night sweats, or hot flashes. She sometimes has sinus drainage. She has not had sore throat or cough. She does have some shortness of breath with activity. She does not complain of chest pain. She has no GI/ complaints other than pain occasionally in her right side. She says the right knee pain has been getting worse, and it is now radiating down the right leg. She also has pain in her ankles and in her shoulders and hands. She does not have headache or focal neurologic symptoms, but she does report having problems with memory/cognitive function. Medications: Cetirizine HCl 1 Tablet (of 10 mg) Oral PRN, Citracal +D3 1 Tablet (of 500-630 Units/mg) Tablet, chewable Oral at bedtime, Curcumin 95 1 Capsule (of 500 mg) Oral daily, Tawana 1 Capsule (of 500 mg) Oral daily, itch relief cream 1 Cream Topical PRN, Lutein 1 Capsule (of 20 mg) Oral daily, Magnesium 1 Tablet (of 500 mg) Oral daily, [place] 3 1 Capsule (of 500 mg) Oral daily, Systane 1 Drop(s) (of 0.4-0.3 %) Solution Ophthalmic daily, Vitamin C 1 Tablet (of 1000 mg) Oral daily, Vitamin D3 1 Capsule (of 2000 Units) Oral daily Allergies: Actonel and Cipro. Vital Signs: Performed on Nov 05, 2021 14:34 Height - 66.00 in Weight - 149.6 lbs (HIGH) BSA - 1.77 sq.m BMI - 24.15 Temperature - 98.7 F Pulse - 76 /min Respiration - 18 /min BP - 158/73 mm(hg) (HIGH) O2 Sat - 99 % Pain - 4 Fatigue - 5 Physical Examination: Constitutional - She looks good generally, Eyes - Sclerae nonicteric. Conjunctivae clear, ENMT - No lesions noted in the oral cavity, Hematologic/Lymphatic - No cervical or clavicular adenopathy, Respiratory - Lungs are clear with good air movement bilaterally, Cardiovascular - Heart rhythm is regular. There is no murmur, gallop, or rub noted, Breasts - There is mild induration in the right breast. There are no breast masses noted. There is no axillary adenopathy, Abdomen - Soft. Liver and spleen are not enlarged. There is no abdominal mass or ascites noted and there is no inguinal adenopathy, Extremities - No edema, Neurologic - No focal neurologic deficits noted. Lab/Imaging: Test performed on Nov 05, 2021 13:50 Iron 50 mcg/dL Sodium 140 mmol/L TSH 1.44 uIU/mL Vitamin B12 284 pg/mL Vitamin D (25-Hydroxy), Total 52 ng/mL Iron Binding Capacity (TIBC) 251 mcg/dl Potassium 4.3 mmol/L % Iron Saturation 19.9 % Chloride 103 mmol/L CO2 24 mmol/L UIBC 201 mcg/dL Anion Gap 17.3 BUN 13 mg/dL Creatinine 0.6 mg/dL Cr Clearance (Est) 88.1200 mL/min Glucose 104 mg/dL Osmolality - Calculated 290 mOsm/kg Calcium 10.0 mg/dL Protein, Total 7.4 g/dL Albumin 4.9 g/dL Globulin 2.5 g/dL Bilirubin, Total 0.7 mg/dL ALT (SGPT) 17 U/L AST (SGOT) 24 U/L Alkaline Phosphatase 76 IU/L WBC 6.3 10 3/uL RBC 3.79 10 6/uL HGB 11.8 g/dL HCT 35.8 % MCV 94.5 fl MCH 31.1 pg MCHC 33.0 g/dL RDW 14.8 % Platelet Count 238 10 3/cmm MPV 10.6 fL Neutrophils 4.48 10 3/uL Lymphocytes 1.4 10 3/uL Monocytes 0.3 10 3/uL Eosinophils 0.1 10 3/uL Basophils 0.1 10 3/uL Neutrophil % 70.7 % Lymphocyte % 22.3 % Monocyte % 4.9 % Eosinophil % 1.1 % Basophils % 0.8 % NRBC % 0 % Problem List: 1. Grade 1 invasive ductal carcinoma of the right breast, stage IA (T1b, pN0, M0), ER/NH positive and HER-2/cece negative. 2. Glaucoma. 3. Hyperlipidemia. 4. Asthma. 5. Degenerative arthritis. 6. Osteoporosis. 7. She was diagnosed with COVID-19 virus infection on 09/22/2020. She has had uneventful recovery. Problems Addressed with this Encounter and Plan: 1. Patient with grade 1 invasive ductal carcinoma of the right breast, stage IA (T1b, pN0, M0), ER/NH positive and HER-2/cece negative. She underwent right breast lumpectomy with axillary sentinel lymph node biopsy on 07/02/2020. Adjuvant chemotherapy was not recommended. She then underwent radiation to the right breast, completed on 08/31/2020 to a total dose of 4260 cGy administered over 16 fractions. She began adjuvant hormonal therapy with anastrozole 1 mg daily on 10/24/2020. During follow-up she has had some increase in fatigue and she also reports having worsening cognitive dysfunction. Her joint pain seems to be getting a little worse as well. It is uncertain to what extent any of this may be treatment related. However, at this point she is advised to stop the anastrozole. I will see her for a follow-up visit in 3 months. 2. She is mildly anemic. Her transferrin saturation is slightly low, consistent with iron deficiency. She will start an oral iron supplement, and I will recheck lab studies with her next visit. Signed By: Mateus Arshad M.D. <<Signature on File>>
== END 2021-11-05 12:43 | disposition home or self-care (01) ==
LOC: ONCMED 12:49
PROVIDERS: PCP Family Medicine; Visit Provider Internal Medicine Medical Oncology
DX: C50.911 Malignant neoplasm of unspecified site of right female breast (principal); D64.9 Anemia, unspecified; H40.9 Unspecified glaucoma; J45.909 Unspecified asthma, uncomplicated; M19.90 Unspecified osteoarthritis, unspecified site; M81.0 Age-related osteoporosis without current pathological fracture; Z86.16 Personal history of COVID-19; Z79.811 Long term (current) use of aromatase inhibitors
CPT/HCPCS: 36415; 80053; 82306; 82607; 83540; 83550; 84443; 85025; 99214

== ENCOUNTER 2021-12-30 14:34 | Outpatient (CLI) | payer MEDICARE, BC, SELFPAY ==
[2021-12-30 15:09] LABS: Basophils # 0.1 10^3/uL (0.0-0.1); Basophils % 0.8 %; Eosinophils # 0.1 10^3/uL (0.0-0.8); Eosinophils % 1.6 %; Hematocrit 35.4 % (37.0-47.0); Hemoglobin 11.7 g/dL (11.5-15.3); Lymphocytes # 1.4 10^3/uL (0.8-4.8); Lymphocytes % 18.7 %; Mean Corpuscular HGB Conc 33.1 g/dL (30.0-36.0); Mean Corpuscular Hemoglobin 31.5 pg (28.0-34.0); Mean Corpuscular Volume 95.4 fl (81-99); Mean Platelet Volume 10.6 fL (7.4-10.4); Monocytes # 0.4 10^3/uL (0.2-0.9); Monocytes % 5.6 %; Neutrophils # 5.59 10^3/uL (1.8-7.7); Nucleated Red Blood Cells % 0 %; Platelet Count 266 10^3/cmm (130-400); Red Blood Count 3.71 10^6/uL (4.1-5.3); White Blood Count 7.7 10^3/uL (4.0-10.0)
[2021-12-30 15:37] LABS: Homocysteine 13.49; Iron 64 ug/dL (37-145); Percent Saturation 25.4 % (20-50); Total Iron Binding Capacity 251 mcg/dl; Unsaturated Iron Binding 187 ug/dL (112-347)
[2021-12-30 15:53] LABS: Vitamin B12 254 pg/mL (232-1245)
[2022-01-10 18:23] LABS: Methylmalonic Acid 602 nmol/L (87-318)
== END 2021-12-30 14:35 | disposition home or self-care (01) ==
PROVIDERS: PCP Family Medicine; Visit Provider Internal Medicine Medical Oncology
DX: C50.411 Malignant neoplasm of upper-outer quadrant of right female breast (principal); Z17.0 Estrogen receptor positive status [ER+]; M81.0 Age-related osteoporosis without current pathological fracture; M85.80 Other specified disorders of bone density and structure, unspecified site; D64.9 Anemia, unspecified; Z79.899 Other long term (current) drug therapy
CPT/HCPCS: 36415; 82607; 83090; 83540; 83550; 83921; 85025

== ENCOUNTER 2022-02-10 09:43 | Oncology outpatient (recurring) (ONCR) | payer MEDICARE, BC, SELFPAY | END 2022-02-25 23:59 | disposition home or self-care (01) | LOC: ONCMED 09:45 | PROVIDERS: PCP Family Medicine; Referring Provider Family Medicine; Visit Provider Nurse Practitioner Family | DX: C50.411 Malignant neoplasm of upper-outer quadrant of right female breast (principal); Z17.0 Estrogen receptor positive status [ER+]; D50.9 Iron deficiency anemia, unspecified; D51.9 Vitamin B12 deficiency anemia, unspecified; R53.83 Other fatigue; M25.561 Pain in right knee; Z79.899 Other long term (current) drug therapy; Z79.818 Long term (current) use of other agents affecting estrogen receptors and estrogen levels | CPT/HCPCS: 82607; 83090; 83540; 83550; 83921; 85025 ==

== ENCOUNTER → 2022-02-28 11:37 | Outpatient (BNVA) | payer MEDICARE, BC, SELFPAY | PROVIDERS: PCP Family Medicine; Visit Provider Emergency Medicine | DX: M79.671 Pain in right foot (principal); M79.672 Pain in left foot | CPT/HCPCS: 73630 ==

== ENCOUNTER → 2022-03-13 09:17 | Outpatient (BNVA) | payer MEDICARE, BC, SELFPAY | PROVIDERS: PCP Family Medicine; Visit Provider Specialist | DX: M17.11 Unilateral primary osteoarthritis, right knee (principal) | CPT/HCPCS: 20610; J7326 ==

== ENCOUNTER 2022-03-24 14:06 | Oncology outpatient (recurring) (ONCR) | payer MEDICARE, BC, SELFPAY ==
[2022-03-24 14:44] LABS: Basophils % 0.5 %; Eosinophils # 0.1 10^3/uL (0.0-0.8); Eosinophils % 0.9 %; Hematocrit 34.3 % (37.0-47.0); Hemoglobin 11.8 g/dL (11.5-15.3); Lymphocytes # 1.6 10^3/uL (0.8-4.8); Lymphocytes % 21.1 %; Mean Corpuscular HGB Conc 34.4 g/dL (30.0-36.0); Mean Corpuscular Hemoglobin 32.4 pg (28.0-34.0); Mean Corpuscular Volume 94.2 fl (81-99); Mean Platelet Volume 10.5 fL (7.4-10.4); Monocytes # 0.4 10^3/uL (0.2-0.9); Monocytes % 5.5 %; Neutrophils # 5.38 10^3/uL (1.8-7.7); Neutrophils % 71.7 %; Nucleated Red Blood Cells % 0 %; Platelet Count 232 10^3/cmm (130-400); Red Blood Count 3.64 10^6/uL (4.1-5.3); Red Cell Distribution Width 14.6 % (12.1-15.1); White Blood Count 7.5 10^3/uL (4.0-10.0)
[2022-03-24 14:55] LABS: Ferritin 324 ng/mL (15-150); Iron 75 ug/dL (37-145); Percent Saturation 30.2 % (20-50); Total Iron Binding Capacity 248 mcg/dl; Unsaturated Iron Binding 173 ug/dL (112-347)
== END 2022-03-27 23:59 | disposition home or self-care (01) ==
PROVIDERS: PCP Family Medicine; Visit Provider Nurse Practitioner Family
DX: C50.411 Malignant neoplasm of upper-outer quadrant of right female breast (principal); Z17.0 Estrogen receptor positive status [ER+]; D50.9 Iron deficiency anemia, unspecified; Z79.818 Long term (current) use of other agents affecting estrogen receptors and estrogen levels; Z79.899 Other long term (current) drug therapy; Z92.3 Personal history of irradiation; S99.922A Unspecified injury of left foot, initial encounter
CPT/HCPCS: 36415; 82728; 83540; 83550; 85025; 99214

== ENCOUNTER 2022-04-02 11:57 | Oncology outpatient (recurring) (ONCR) | payer MEDICARE, BC, SELFPAY ==
--- NOTE | 2022-04-02 12:11 | CT_ITS ---
WS: [id number] NONCONTRAST CT LEFT FOOT TECHNIQUE: Noncontrast CT LEFT foot with coronal and sagittal reformatted images. CLINICAL INFORMATION: SWELLING/PAIN/NO IMPROVEMENT W/CONSERVATIVE MANAGEMENT/INJUR COMPARISON: Radiograph February 28, 2022 DLP: 163.[address] scans at [facility] use at least one of these dose optimization techniques: automated e xposure control; mA and/or kV adjustment per patient size (includes targeted exams where dose is matc hed to clinical indication); or iterative reconstruction. FINDINGS: Dorsal calcaneal enthesophyte. Tiny plantar calcaneal spur. Normal calcaneus. Normal talocalcaneal ar ticulation. Normal ankle mortise. Normal medial and lateral malleolus. Normal talar dome. Soft tissue edema dorsal foot soft tissues. Normal navicular. Hypertrophic spurring along the tarsal bones. Metatarsals appear normal. No acute fractures. CT/CT foot LT wo con* [id number] IMPRESSION: No visualized acute fractures
== END 2022-04-27 23:59 | disposition home or self-care (01) ==
PROVIDERS: PCP Family Medicine; Visit Provider Nurse Practitioner Family
DX: S99.922A Unspecified injury of left foot, initial encounter (principal); M77.32 Calcaneal spur, left foot
CPT/HCPCS: 73700

== ENCOUNTER → 2022-05-05 11:03 | Outpatient (BNVA) | payer MEDICARE, BC, SELFPAY | PROVIDERS: PCP Family Medicine; Visit Provider Podiatrist Foot & Ankle Surgery | DX: W23.0XXA Caught, crushed, jammed, or pinched between moving objects, initial encounter (principal); S99.922A Unspecified injury of left foot, initial encounter; M21.612 Bunion of left foot; M19.079 Primary osteoarthritis, unspecified ankle and foot | CPT/HCPCS: 99203; 99204 ==

== ENCOUNTER 2022-05-07 10:41 | Outpatient (CLI) | payer MEDICARE, BC, SELFPAY ==
--- NOTE | 2022-05-07 10:58 | MM_ITS ---
WS: [id number] SCREENING DIGITAL BREAST TOMOSYNTHESIS MAMMOGRAM WITH CAD HISTORY: HX OF BREAST CA COMPARISON: None available. Bilateral CC and MLO with tomosynthesis and synthetic mammography submitted. Computer aided detection analyzed. Breast composition: The breasts are heterogeneously dense, which may obscure small masses. Postsurgic al changes of lumpectomy in the upper outer quadrant of the RIGHT breast. Numerous postsurgical clips are similar in appearance to the prior study. No recurrent or new mass. Normal LEFT breast. MM/[place] [id number] IMPRESSION: BI-RADS: 2-Benign FOLLOW UP: 1 Year Follow-up
== END 2022-05-07 10:42 | disposition home or self-care (01) ==
PROVIDERS: PCP Family Medicine; Visit Provider Nurse Practitioner Family
DX: Z85.3 Personal history of malignant neoplasm of breast (principal)
CPT/HCPCS: 77062; G0279

== ENCOUNTER 2022-07-01 12:32 | Oncology outpatient (recurring) (ONCR) | payer MEDICARE, BC, SELFPAY ==
[2022-07-01 12:54] LABS: Basophils # 0.1 10^3/uL (0.0-0.1); Basophils % 0.7 %; Eosinophils # 0.1 10^3/uL (0.0-0.8); Eosinophils % 0.8 %; Hemoglobin 11.8 g/dL (11.5-15.3); Lymphocytes # 1.8 10^3/uL (0.8-4.8); Lymphocytes % 21.2 %; Mean Corpuscular HGB Conc 33.7 g/dL (30.0-36.0); Mean Corpuscular Hemoglobin 32.7 pg (28.0-34.0); Mean Platelet Volume 10.4 fL (7.4-10.4); Monocytes # 0.6 10^3/uL (0.2-0.9); Monocytes % 6.6 %; Neutrophils % 70.3 %; Nucleated Red Blood Cells % 0 %; Platelet Count 277 10^3/cmm (130-400); Red Blood Count 3.61 10^6/uL (4.1-5.3); Red Cell Distribution Width 14.8 % (12.1-15.1); White Blood Count 8.4 10^3/uL (4.0-10.0)
[2022-07-01 13:24] LABS: Alanine Aminotransferase 12 U/L (0-33); Albumin Level 4.6 g/dL (3.5-5.2); Alkaline Phosphatase 79 U/L (35-105); Anion Gap 14.5 (5-19); Aspartate Amino Transferase 16 U/L (0-32); Blood Urea Nitrogen 16 mg/dL (8-23); Calcium 9.8 mg/dL (8.5-10.5); Carbon Dioxide 27 mmol/L (22-29); Chloride 104 mmol/L (98-107); Chol HDL Ratio 5.34 mg/dL (0.0-4.40); Cholesterol 187 mg/dL (0-200); Globulin 2.4 g/dL (1.3-4.6); Glucose 96 mg/dL (65-115); HDL Cholesterol 35 mg/dL (60-100); LDL Cholesterol Calculated 122 mg/dL (50-129); LDL HDL Ratio 3.49 RATIO (0.00-3.22); Osmolality Calculated 293 mOsm/kg (285-295); Potassium 4.5 mmol/L (3.5-5.1); Sodium 141 mmol/L (136-145); Total Bilirubin 0.9 mg/dL (0.15-1.2); Triglycerides 149 mg/dL (0-150)
== END 2022-07-28 23:59 | disposition home or self-care (01) ==
LOC: ONCMED 12:34
PROVIDERS: PCP Family Medicine; Visit Provider Nurse Practitioner Family
DX: C50.411 Malignant neoplasm of upper-outer quadrant of right female breast (principal); E78.5 Hyperlipidemia, unspecified; Z13.220 Encounter for screening for lipoid disorders; Z92.3 Personal history of irradiation; Z79.811 Long term (current) use of aromatase inhibitors; H53.9 Unspecified visual disturbance; Z51.81 Encounter for therapeutic drug level monitoring; R23.2 Flushing; T45.1X5A Adverse effect of antineoplastic and immunosuppressive drugs, initial encounter; L29.8 Other pruritus
CPT/HCPCS: 80053; 80061; 85025; 99214

== ENCOUNTER → 2022-09-18 08:25 | Outpatient (BNVA) | payer MEDICARE, BC, SELFPAY | PROVIDERS: PCP Family Medicine; Visit Provider Specialist | DX: M17.11 Unilateral primary osteoarthritis, right knee (principal) | CPT/HCPCS: 20610; J7326 ==

== ENCOUNTER 2023-01-07 14:25 | Oncology outpatient (recurring) (ONCR) | payer MEDICARE, BC, SELFPAY ==
[2023-01-07 17:12] LABS: Basophils % 0.5 %; Eosinophils # 0.1 10^3/uL (0.0-0.8); Eosinophils % 1.4 %; Hematocrit 37.7 % (37.0-47.0); Hemoglobin 12.6 g/dL (11.5-15.3); Lymphocytes % 26.8 %; Mean Corpuscular HGB Conc 33.4 g/dL (30.0-36.0); Mean Corpuscular Hemoglobin 32.1 pg (28.0-34.0); Mean Corpuscular Volume 95.9 fl (81-99); Mean Platelet Volume 10.3 fL (7.4-10.4); Monocytes # 0.5 10^3/uL (0.2-0.9); Monocytes % 6.9 %; Neutrophils # 4.73 10^3/uL (1.8-7.7); Nucleated Red Blood Cells % 0 %; Platelet Count 283 10^3/cmm (130-400); Red Blood Count 3.93 10^6/uL (4.1-5.3); Red Cell Distribution Width 15.1 % (12.1-15.1); White Blood Count 7.4 10^3/uL (4.0-10.0)
[2023-01-07 18:04] LABS: Alanine Aminotransferase 16 U/L (0-33); Albumin Level 4.9 g/dL (3.5-5.2); Alkaline Phosphatase 85 U/L (35-105); Anion Gap 15.8 (5-19); Aspartate Amino Transferase 19 U/L (0-32); Blood Urea Nitrogen 16 mg/dL (8-23); Calcium 9.7 mg/dL (8.5-10.5); Carbon Dioxide 26 mmol/L (22-29); Chloride 105 mmol/L (98-107); Globulin 2.6 g/dL (1.3-4.6); Glucose 85 mg/dL (65-115); Osmolality Calculated 296 mOsm/kg (285-295); Potassium 3.8 mmol/L (3.5-5.1); Sodium 143 mmol/L (136-145); Thyroid Stimulating Hormone 3.04 uIU/mL (0.27-4.20); Total Bilirubin 1.1 mg/dL (0.15-1.2); Total Protein 7.5 g/dL (6.6-8.7)
== END 2023-01-25 23:59 | disposition home or self-care (01) ==
LOC: ONCMED 14:26
PROVIDERS: PCP Family Medicine; Visit Provider Nurse Practitioner
DX: C50.411 Malignant neoplasm of upper-outer quadrant of right female breast (principal); Z17.0 Estrogen receptor positive status [ER+]; R53.0 Neoplastic (malignant) related fatigue; D71 Functional disorders of polymorphonuclear neutrophils; R61 Generalized hyperhidrosis; L29.8 Other pruritus; H53.8 Other visual disturbances; M85.89 Other specified disorders of bone density and structure, multiple sites; Z79.818 Long term (current) use of other agents affecting estrogen receptors and estrogen levels; Z79.899 Other long term (current) drug therapy
CPT/HCPCS: 80053; 84443; 85025; 99214

== ENCOUNTER 2023-01-09 13:22 | Outpatient (CLI) | payer MEDICARE, BC, SELFPAY ==
--- NOTE | 2023-01-09 13:30 | XR_ITS ---
WS: [id number] DEXA (DUAL ENERGY X-RAY ABSORPTIOMETRY) Bone mineral density was performed using a Fle[employer] machine. HISTORY: osteopenia and Aromatase inhibitor monitoring COMPARISON: 10/23/2020 Lumbar spine BMD (L1-L4): 1.035 g/cm2 T score: -1.2 Z score: 0.3 Total hip BMD: Left: 0.990 g/cm2. T score: -0.1 Z score: 1.5 Right: 0.943 g/cm2. T score: -0.5 Z score: 1.1 10 year probability of a major osteoporotic fracture is 20.4%. Compared to the prior study from 10/23/2020. Lumbar spine bone mineral density has increased by 4.3%. Bilateral hips bone mineral density has decreased by 0.7%. XR/XR DEXA axial skeleton* [id number] IMPRESSION: OSTEOPENIA based upon the WHO classification for females. Significant increase in bone mineral density within the lumbar spine since the prior study.
== END 2023-01-09 13:23 | disposition home or self-care (01) ==
LOC: RAD 13:29
PROVIDERS: PCP Family Medicine; Visit Provider Nurse Practitioner
DX: Z78.0 Asymptomatic menopausal state (principal); M85.80 Other specified disorders of bone density and structure, unspecified site
CPT/HCPCS: 77080

== ENCOUNTER → 2023-03-26 13:16 | Outpatient (BNVA) | payer MEDICARE, BC, SELFPAY | PROVIDERS: PCP Family Medicine; Visit Provider Specialist | DX: M17.11 Unilateral primary osteoarthritis, right knee (principal) | CPT/HCPCS: 20610; J7326 ==

== ENCOUNTER 2023-06-11 11:11 | Outpatient (CLI) | payer MEDICARE, BC, SELFPAY ==
--- NOTE | 2023-06-11 11:29 | MM_ITS ---
WS: [id number] BILATERAL 3D TOMOSYNTHESIS DIGITAL DIAGNOSTIC MAMMOGRAPHY WITH CAD CLINICAL INFORMATION: breast cancer 1 year follow up HISTORY: RIGHT breast cancer COMPARISON: 2021 TECHNIQUE: Bilateral CC, MLO, and ML views. FINDINGS: The breasts are composed of heterogeneous fibroglandular density, which can limit the detection of sm all underlying mass lesions. Prior postoperative changes RIGHT lumpectomy with surgical clips in the RIGHT axilla. Treatment-related changes RIGHT breast. No suspicious focal mass, asymmetry, calcifications, or architectural distortion. No evidence of meliza gnancy. IMPRESSION: MM/[place] [id number] BI-RADS: 2-Benign FOLLOW UP: 1 Year Follow-up Recommend return to annual diagnostic mammography.
== END 2023-06-11 11:12 | disposition home or self-care (01) ==
PROVIDERS: PCP Family Medicine; Visit Provider Internal Medicine Medical Oncology
DX: C50.411 Malignant neoplasm of upper-outer quadrant of right female breast (principal)
CPT/HCPCS: 77062; G0279

== ENCOUNTER 2023-07-06 13:53 | Oncology outpatient (recurring) (ONCR) | payer MEDICARE, BC, SELFPAY | END 2023-07-28 23:59 | disposition home or self-care (01) | PROVIDERS: PCP Family Medicine; Visit Provider Nurse Practitioner | DX: C50.411 Malignant neoplasm of upper-outer quadrant of right female breast (principal); Z51.81 Encounter for therapeutic drug level monitoring; E78.5 Hyperlipidemia, unspecified; Z13.220 Encounter for screening for lipoid disorders; Z92.3 Personal history of irradiation; Z79.811 Long term (current) use of aromatase inhibitors; H53.9 Unspecified visual disturbance; R23.2 Flushing; T45.1X5A Adverse effect of antineoplastic and immunosuppressive drugs, initial encounter; L29.8 Other pruritus | CPT/HCPCS: 99214 ==

== ENCOUNTER → 2023-10-08 10:23 | Outpatient (BNVA) | payer MEDICARE, BC, SELFPAY | PROVIDERS: PCP Family Medicine; Visit Provider Specialist | DX: M17.11 Unilateral primary osteoarthritis, right knee (principal); Z71.89 Other specified counseling | CPT/HCPCS: 20610; J7326 ==

== ENCOUNTER 2024-01-12 11:24 | Oncology outpatient (recurring) (ONCR) | payer MEDICARE, BC, SELFPAY ==
[2024-01-12 12:05] LABS: Basophils % 0.5 %; Eosinophils # 0.1 10^3/uL (0.0-0.8); Eosinophils % 0.7 %; Hematocrit 35.1 % (36-47); Lymphocytes # 2.1 10^3/uL (0.8-4.8); Lymphocytes % 27.6 %; Mean Corpuscular HGB Conc 34.2 g/dL (30-55); Mean Corpuscular Hemoglobin 32.6 pg (27-33); Mean Corpuscular Volume 95.4 fl (85-98); Mean Platelet Volume 10.4 fL (7.4-10.4); Monocytes # 0.6 10^3/uL (0.2-0.9); Monocytes % 7.2 %; Neutrophils # 4.85 10^3/uL (1.8-7.7); Neutrophils % 63.7 %; Nucleated Red Blood Cells % 0 %; Platelet Count 256 10^3/cmm (157-399); Red Blood Count 3.68 10^6/uL (3.85-5.65); Red Cell Distribution Width 15.3 % (12.1-15.1); White Blood Count 7.61 10^3/uL (3.29-11.43)
[2024-01-12 12:28] LABS: Alanine Aminotransferase 18 U/L (0-33); Albumin Level 4.5 g/dL (3.5-5.2); Alkaline Phosphatase 78 U/L (35-105); Anion Gap 15.1 (5-19); Aspartate Amino Transferase 22 U/L (0-32); Blood Urea Nitrogen 19 mg/dL (8-23); Carbon Dioxide 25 mmol/L (22-29); Chloride 106 mmol/L (98-107); Globulin 2.6 g/dL (1.3-4.6); Glucose 95 mg/dL (65-115); Osmolality Calculated 296 mOsm/kg (285-295); Potassium 4.1 mmol/L (3.5-5.1); Sodium 142 mmol/L (136-145); Total Bilirubin 1.1 mg/dL (0.15-1.2); Total Protein 7.1 g/dL (6.6-8.7)
[2024-01-12 14:37] LABS: Lactate Dehydrogenase 219 U/L (135-214)
== END 2024-01-26 23:59 | disposition home or self-care (01) ==
PROVIDERS: Internal Medicine; PCP Family Medicine; Visit Provider Nurse Practitioner
DX: C50.411 Malignant neoplasm of upper-outer quadrant of right female breast (principal); Z51.81 Encounter for therapeutic drug level monitoring; E78.5 Hyperlipidemia, unspecified; Z13.220 Encounter for screening for lipoid disorders; Z92.3 Personal history of irradiation; Z79.811 Long term (current) use of aromatase inhibitors; H53.9 Unspecified visual disturbance; R23.2 Flushing; T45.1X5A Adverse effect of antineoplastic and immunosuppressive drugs, initial encounter; L29.8 Other pruritus
CPT/HCPCS: 80053; 83615; 85025; 99214

== ENCOUNTER 2024-06-15 09:26 | Outpatient (CLI) | payer MEDICARE, BC, SELFPAY ==
--- NOTE | 2024-06-15 10:00 | MM_ITS ---
WS: [id number] DIAGNOSTIC BILATERAL DIGITAL BREAST TOMOSYNTHESIS MAMMOGRAPHY WITH CAD HISTORY: malignant neoplasm of upper outer quadrant of r breast COMPARISON: 06/11/2023, 05/07/2022 TECHNIQUE: Bilateral craniocaudad, mediolateral oblique, and mediolateral views are submitted with to mosynthesis and SM. Computer aided detection utilized. Breast composition: The breasts are heterogeneously dense, which may obscure small masses. Prior RIGHT lumpectomy. Surgical sutures are noted towards the upper outer quadrant. No recurrent mas s. LEFT breast is negative. MM/MM diag BI tomosynthesis [id number] IMPRESSION: BI-RADS: 2 - Benign FOLLOW UP: 1 Year Follow-up
[2024-06-15 10:57] LABS: Chol HDL Ratio 4.81 mg/dL (0.0-4.40); Cholesterol 173 mg/dL (0-200); HDL Cholesterol 36 mg/dL (60-100); LDL Cholesterol Calculated 124 mg/dL (50-129); LDL HDL Ratio 3.44 RATIO (0.00-3.22); Triglycerides 65 mg/dL (0-150)
== END 2024-06-15 09:27 | disposition home or self-care (01) ==
LOC: RAD 09:28
PROVIDERS: PCP Family Medicine; Visit Provider Internal Medicine
DX: Z13.220 Encounter for screening for lipoid disorders (principal); E78.5 Hyperlipidemia, unspecified; C50.411 Malignant neoplasm of upper-outer quadrant of right female breast; R92.333 Mammographic heterogeneous density, bilateral breasts; Z98.890 Other specified postprocedural states
CPT/HCPCS: 36415; 77062; 80061; G0279

== ENCOUNTER 2024-07-13 12:24 | Oncology outpatient (recurring) (ONCR) | payer MEDICARE, BC, SELFPAY ==
[2024-07-13 12:30] LABS: Basophils % 0.6 %; Eosinophils # 0.1 10^3/uL (0.0-0.8); Eosinophils % 0.8 %; Hematocrit 36.4 % (36-47); Lymphocytes % 27.9 %; Mean Corpuscular HGB Conc 33.5 g/dL (30-55); Mean Corpuscular Hemoglobin 31.8 pg (27-33); Mean Corpuscular Volume 94.8 fl (85-98); Mean Platelet Volume 10.2 fL (7.4-10.4); Monocytes # 0.6 10^3/uL (0.2-0.9); Monocytes % 7.8 %; Neutrophils # 4.55 10^3/uL (1.8-7.7); Neutrophils % 62.6 %; Nucleated Red Blood Cells % 0 %; Platelet Count 309 10^3/cmm (157-399); Red Blood Count 3.84 10^6/uL (3.85-5.65); Red Cell Distribution Width 15.8 % (12.1-15.1); White Blood Count 7.27 10^3/uL (3.29-11.43)
[2024-07-13 13:06] LABS: Alanine Aminotransferase 18 U/L (0-33); Albumin Level 4.7 g/dL (3.5-5.2); Alkaline Phosphatase 85 U/L (35-105); Anion Gap 15.6 (5-19); Aspartate Amino Transferase 21 U/L (0-32); Blood Urea Nitrogen 16 mg/dL (8-23); Calcium 9.6 mg/dL (8.5-10.5); Carbon Dioxide 26 mmol/L (22-29); Chloride 105 mmol/L (98-107); Globulin 2.8 g/dL (1.3-4.6); Glucose 94 mg/dL (65-115); Lactate Dehydrogenase 177 U/L (135-214); Osmolality Calculated 295 mOsm/kg (285-295); Potassium 4.6 mmol/L (3.5-5.1); Sodium 142 mmol/L (136-145); Total Bilirubin 0.7 mg/dL (0.15-1.2); Total Protein 7.5 g/dL (6.6-8.7)
[2024-07-13 19:52] LABS: 25 Hydroxy Vitamin D 52 ng/mL (30-100)
== END 2024-07-28 23:59 | disposition home or self-care (01) ==
PROVIDERS: Nurse Practitioner Family; PCP Family Medicine; Visit Provider Nurse Practitioner
DX: C50.411 Malignant neoplasm of upper-outer quadrant of right female breast (principal); E78.5 Hyperlipidemia, unspecified; Z13.220 Encounter for screening for lipoid disorders; Z92.3 Personal history of irradiation; Z79.811 Long term (current) use of aromatase inhibitors; U07.1 COVID-19; M85.80 Other specified disorders of bone density and structure, unspecified site
CPT/HCPCS: 36415; 80053; 82306; 83615; 84443; 85025; 99214

== ENCOUNTER 2024-08-03 11:46 | Outpatient (CLI) | payer MEDICARE, BC, SELFPAY ==
[2024-08-03 12:39] LABS: Anion Gap 12.3 (5-19); Blood Urea Nitrogen 16 mg/dL (8-23); Calcium 9.5 mg/dL (8.5-10.5); Carbon Dioxide 28 mmol/L (22-29); Chloride 104 mmol/L (98-107); Glucose 108 mg/dL (65-115); Osmolality Calculated 292 mOsm/kg (285-295); Potassium 4.3 mmol/L (3.5-5.1); Sodium 140 mmol/L (136-145)
== END 2024-08-03 11:47 | disposition home or self-care (01) ==
PROVIDERS: Absent Provider Nurse Practitioner Family; PCP Family Medicine; Visit Provider Family Medicine
DX: R79.89 Other specified abnormal findings of blood chemistry (principal)
CPT/HCPCS: 36415; 80048

== ENCOUNTER 2025-01-12 12:45 | Oncology outpatient (recurring) (ONCR) | payer MEDICARE, BC, SELFPAY ==
[2025-01-12 13:12] LABS: Basophils % 0.4 %; Eosinophils # 0.1 10^3/uL (0.0-0.8); Eosinophils % 0.9 %; Lymphocytes % 23.9 %; Mean Corpuscular HGB Conc 34.2 g/dL (30-55); Mean Corpuscular Hemoglobin 32.4 pg (27-33); Mean Corpuscular Volume 94.7 fl (85-98); Mean Platelet Volume 10.3 fL (7.4-10.4); Monocytes # 0.6 10^3/uL (0.2-0.9); Monocytes % 7.2 %; Neutrophils # 5.51 10^3/uL (1.8-7.7); Neutrophils % 67.2 %; Nucleated Red Blood Cells % 0 %; Platelet Count 286 10^3/cmm (157-399); Red Cell Distribution Width 15.9 % (12.1-15.1); White Blood Count 8.19 10^3/uL (3.29-11.43)
[2025-01-12 13:32] LABS: Alanine Aminotransferase 25 U/L (0-33); Albumin Level 4.6 g/dL (3.5-5.2); Alkaline Phosphatase 77 U/L (35-105); Anion Gap 16.2 (5-19); Aspartate Amino Transferase 21 U/L (0-32); Blood Urea Nitrogen 19 mg/dL (8-23); Calcium 9.7 mg/dL (8.5-10.5); Carbon Dioxide 24 mmol/L (22-29); Chloride 104 mmol/L (98-107); Globulin 2.8 g/dL (1.3-4.6); Glucose 95 mg/dL (65-115); Lactate Dehydrogenase 186 U/L (135-214); Osmolality Calculated 292 mOsm/kg (285-295); Potassium 4.2 mmol/L (3.5-5.1); Sodium 140 mmol/L (136-145); Total Bilirubin 1.1 mg/dL (0.15-1.2); Total Protein 7.4 g/dL (6.6-8.7)
[2025-01-12 13:48] LABS: 25 Hydroxy Vitamin D 47 ng/mL (30-100)
== END 2025-01-25 23:59 | disposition home or self-care (01) ==
PROVIDERS: Internal Medicine Medical Oncology; PCP Family Medicine; Visit Provider Nurse Practitioner
DX: C50.411 Malignant neoplasm of upper-outer quadrant of right female breast (principal); Z17.0 Estrogen receptor positive status [ER+]; R03.0 Elevated blood-pressure reading, without diagnosis of hypertension; M85.80 Other specified disorders of bone density and structure, unspecified site; Z79.811 Long term (current) use of aromatase inhibitors; Z78.0 Asymptomatic menopausal state; Z92.3 Personal history of irradiation
CPT/HCPCS: 36415; 80053; 82306; 83615; 85025; 99214

== ENCOUNTER 2025-05-05 12:29 | Outpatient (CLI) | payer MEDICARE, BC, SELFPAY ==
--- NOTE | 2025-05-05 13:00 | XR_ITS ---
WS: [id number] DEXA (DUAL ENERGY X-RAY ABSORPTIOMETRY) Bone mineral density was performed using a [employer] machine. HISTORY: osteopenia COMPARISON: 01/09/2023 Lumbar spine BMD (L1-L4): 0.941 T score: -2.2 Z score: -0.5 Total hip BMD: Left: 0.964 g/cm2. T score: -0.3 Z score: 1.4 Right: 0.952 g/cm2. T score: -0.4 Z score: 1.3 10 year probability of a major osteoporotic fracture is 19.6%. Compared to the prior study from 01/09/2023. Lumbar spine bone mineral density has decreased by 12.4%. Bilateral hips bone mineral density has increased by 0.9%. XR/XR DEXA axial skeleton* [id number] IMPRESSION: OSTEOPENIA based upon the WHO classification for females. Significant decrease in bone mineral density within the lumbar spine since the prior study. No significant change within the hips.
== END 2025-05-05 12:30 | disposition home or self-care (01) ==
LOC: RAD 12:31
PROVIDERS: PCP Family Medicine; Visit Provider Internal Medicine Medical Oncology
DX: Z13.820 Encounter for screening for osteoporosis (principal); Z78.0 Asymptomatic menopausal state; M85.80 Other specified disorders of bone density and structure, unspecified site
CPT/HCPCS: 77080

== ENCOUNTER 2025-07-12 12:45 | Oncology outpatient (recurring) (ONCR) | payer MEDICARE, BC, SELFPAY ==
--- NOTE | 2025-07-05 14:30 | MM_ITS ---
WS: [id number] BILATERAL 3D TOMOSYNTHESIS DIGITAL DIAGNOSTIC MAMMOGRAPHY WITH CAD CLINICAL INFORMATION: malignant neoplasm of upper-outter breast HISTORY: RIGHT breast cancer COMPARISON: 2023 TECHNIQUE: Bilateral CC, MLO, and ML views. FINDINGS: The breasts are composed of heterogeneous fibroglandular density, which can limit the detection of small underlying mass lesions. Surgical clips with lumpectomy changes upper outer RIGHT breast No suspicious focal mass, asymmetry, calcifications, or architectural distortion. No evidence of malignancy. MM/MM diag tomosynthesis [id number] IMPRESSION: DENSITY: The breasts are heterogeneously dense, which may obscure small masses. BI-RADS: 2 - Benign FOLLOW UP: 1 Year Follow-up Recommend return to annual diagnostic mammography.
[2025-07-12 13:08] LABS: Hematocrit 35.5 % (36-47); Hemoglobin 11.90 g/dL (11.27-16.99); Mean Corpuscular HGB Conc 33.5 g/dL (30-55); Mean Corpuscular Hemoglobin 32.2 pg (27-33); Mean Corpuscular Volume 95.9 fl (85-98); Nucleated Red Blood Cells % 0 %; Platelet Count 270 10^3/cmm (157-399); Red Blood Count 3.70 10^6/uL (3.85-5.65); White Blood Count 8.51 10^3/uL (3.29-11.43)
[2025-07-12 13:31] LABS: Alanine Aminotransferase 28 U/L (0-33); Albumin Level 4.8 g/dL (3.5-5.2); Alkaline Phosphatase 92 U/L (35-105); Anion Gap 16.1 (5-19); Aspartate Amino Transferase 22 U/L (0-32); Blood Urea Nitrogen 15 mg/dL (8-23); Calcium 10.1 mg/dL (8.5-10.5); Carbon Dioxide 26 mmol/L (22-29); Chloride 102 mmol/L (98-107); Creatinine Clr Calc Pharmacy 57.9517; Globulin 2.7 g/dL (1.3-4.6); Glucose 108 mg/dL (65-115); Osmolality Calculated 291 mOsm/kg (285-295); Potassium 4.1 mmol/L (3.5-5.1); Sodium 140 mmol/L (136-145); Total Protein 7.5 g/dL (6.6-8.7)
== END 2025-07-28 23:59 | disposition home or self-care (01) ==
PROVIDERS: Internal Medicine Medical Oncology; PCP Family Medicine; Visit Provider Nurse Practitioner
DX: Z53.9 Procedure and treatment not carried out, unspecified reason (principal); C50.411 Malignant neoplasm of upper-outer quadrant of right female breast; Z17.0 Estrogen receptor positive status [ER+]; M85.80 Other specified disorders of bone density and structure, unspecified site; R03.0 Elevated blood-pressure reading, without diagnosis of hypertension; Z78.0 Asymptomatic menopausal state; Z92.3 Personal history of irradiation; Z79.899 Other long term (current) drug therapy
CPT/HCPCS: 36415; 77062; 80053; 85025; 99213; G0279